=== PATIENT | female | born 1940 | race Caucasian/White ===

== ENCOUNTER 2022-06-19 09:02 | Outpatient (CLI) | payer OTHER, MEDICARE, SELFPAY ==
--- OUTSIDE RECORDS SUMMARY | 2022-06-19 09:08 | XMS_ITS | Encounter Summary ---
:1940 Author Organization [employer] Address [address] [address] Phone Care Team Providers Name Role Phone Unavailable Primary Care Provider Unavailable Encounter Details Date Type Department Care Team Description 04/16/2022 Travel Social History Tobacco Use Types Packs/Day Years Used Date Never Smoker Smokeless Tobacco: Never Used Sex Assigned at Date Recorded Not on file Job Start Date Occupation Industry Not on file Not on file Not on file COVID-19 Exposure Response Date Recorded In the last 10 days, have you been in contact with No / Unsu re 04/16/2022 12:09 PM CDT someone who was confirmed or suspected to have Coronavirus/COVID-19? documented as of this encounter Plan of Treatment Not on filedocumented as of this encounter Visit Diagnoses Not on filedocumented in this encounter Additional Health Concerns Infection Onset Date Last Indicated Resolved Time R/O COVID-19 04/16/2022 04/16/2022 04/16/2022 1:27 PM CDT COVID-19 Confirmed 04/16/2022 04/16/2022 05/07/2022 11 :06 PM CDT documented as of this encounter
--- OUTSIDE RECORDS SUMMARY | 2022-06-19 09:08 | XMS_ITS | Encounter Summary ---
:1940 Author Organization [employer] [facility] [employer] Address [address] [address] Phone Care Team Providers Name Role Phone Unavailable Primary Care Provider Unavailable Reason for Visit Reason Comments Cold Symptoms Cold symptoms x3 days. Dry t hroat, mucous, PND, runny nose. Bleeding/Bruising Bloody nose and considerable mucous secretions that started today. Encounter Details Date Type Department Care Team Description 04/16/2022 Office Visit Maryse Muir, [facility] MD tract infection, [facility] [address] [facility] unspecified type [facility] [place] (Primary Dx) [address] [address] [place], [place] [phone] (Wo rk) [address] [phone] Social History Tobacco Use Types Packs/Day Years [...] have Coronavirus/COVID-19? documented as of this encounter Last Filed Vital Signs Vital Sign Reading Time Taken Comments Blood Pressure 104/68 04/16/2022 12:21 PM CDT Pulse 72 04/16/2022 12:21 PM CDT Temperature 37.3 ??C (99.2 ??F) 04/16/2022 12:21 PM CDT Respiratory Rate - - Oxygen Saturation 96% 04/16/2022 12:21 PM CDT Inhaled Oxygen Concentration - - Weight - - Height - - Body Mass Index - - documented in this encounter Patient Instructions Patient InstructionsMaryse Green MD - 04/16/2022 12:41 PM CDT It was nice to meet you both today. I think this is viral. We did do a covid test today and will call you if this is positive. Treat with acetaminophen and or mucinex. Follow up if there is shortness of breath or fevers or other concerns of worsening. The bloody nose may come back but apply pressure as you did and if it persists and won't stop after 20 minutes or is bleeding profusely then go to the emergency room. documented in this encounter Progress Notes Maryse Green MD - 04/16/2022 12:10 PM CDT Patient in with illness for about 4 days. Dry throat and cough with mucus and sinus drainage. Now some nose bleed on the right but stopped now with pacing. No fevers. Some headache off and on. No nausea vomiting or diarrhea. No shortness of breath or pain in the chest. Did not take their temps as theyare traveling from [place]. No past medical history on file. There is no problem list on file for this patient. Current Outpatient Medications Medication Sig ??? alendronate (Fosamax) 70 MG tablet ??? anastrozole (Arimidex) 1 MG tablet Take 1 mg by mouth one time a day. ??? latanoprost (Xalatan) 0.005 % ophthalmic solution ??? prednisoLONE acetate (Pred Forte) 1 % ophthalmic suspension INSTILL 1 DROP IN BOTH EYES FOUR TIMES DAILY UNTIL DIRECTED No current facility-administered medications for this visit. No Known Allergies Vitals: 04/16/22 1221 BP: 104/68 Pulse: 72 Temp: 37.3 ??C (99.2 ??F) SpO2: 96% Physical Exam: GENERAL APPEARANCE: Healthy; alert and oriented X3; no acute distress EARS: External ears normal; ear canals normal; tympanic membranes normal MOUTH/OROPHARYNX: Normal lips, tongue, buccal mucosa and pharynx without lesions NECK: supple and no nodes LUNGS: clear to auscultation HEART: Normal with regular rhythm; normal heart sounds and no murmurs NOSE - no bleeding noted. The right nares has some dried blood on the inner septal area ASSESSMENT: (J06.9) Upper respiratory tract infection, unspecified type (primary encounter diagnosis) Comment: appears viral Plan: RAPID SARS-COV-2 RNA (COVID-19), MOLECULAR DETECTION Manage with gfvf-djp-cgmlped acetaminophen and mucinex. Follow up if worsening with shortness of breath or fevers and cough. To emergency room if nose bleeds resume and can not be stopped. documented in this encounter Miscellaneous Notes Clinical Note - Joanna Lau LPN - 04/16/2022 12:10 PM CDT All husbands cell phone number with results. is Bryan Krishnamurthy. Phone number is [phone] documented in this encounter Plan of Treatment Not on filedocumented as of this encounter Procedures Procedure Name Priority Date/Time Associated Diagnosis Comme nts RAPID SARS-COV-2 STAT 04/16/2022 12:48 PM Upper respiratory Results for this RNA (COVID-19), CDT tract infection, procedur e are in MOLECULAR DETECTION unspecified type the results section. documented in this encounter Results (ABNORMAL) RAPID SARS-COV-2 RNA (COVID-19), MOLECULAR DETECTION (04/16/2022 12:48 PM CDT) [facility] Method Time Signature SARS-CoV-2 Positive (A) Negative/Not 04/16/2022 [facility] RNA Detected 1:27 PM CDT HOSPITAL (COVID-19) LABORATORY Comment: SARS-CoV-2 (COVID-19) target nu cleic acids are detected. A positive result does not rule out bacterial infection or co-infection with other viruses. Specimen Anatomical Collection Method Collection Time Receive d Time (Source) Location / / Volume Laterality Swab NASAL / Unknown COVID-19 04/16/2022 12:48 04/16/20 22 Collection / PM CDT 12:56 PM CDT Unknown Narrative [facility] - 2021 1:27 PM CDT Test detects target RNA by real-time polymerase chain reaction (PCR) on the [employer] GeneXpert System. Results should be used in combination wi th clinical observations, patient history and epidemiological information. Results from this test should not be use d as the sole basis for treatment or other patient management decisions. The SARS-CoV-2 test is currently only fo r use under the Food and Drug Administration's Emergency Use Authorization. ??Additional information about conditions of authorization for this test can be found at: https://www.fda.gov/medical-devices/zseesjcyp-igzkcmsgam-zpcniwq-devices/emergen mx-zcn-eqnibajutqlvpk Maryse Green MD EC MICROBIOLOGY - GENERAL OR DERABLES Performing Organization Address City/State/ZIP Code Phon e Number [facility] [address] [place], [place] [address] documented in this encounter Visit Diagnoses Diagnosis Upper respiratory tract infection, unspe cified type - Primary documented in this encounter Historical Medications This list may reflect changes made after this encounter. Medication Sig Dispensed Refills Start Date End Date prednisoLONE acetate (Pred INSTILL 1 DROP IN 0 Forte) 1 % ophthalmic BOTH EYES FOUR TIMES suspension DAILY UNTIL DIRECTED latanoprost (Xalatan) 0 01/02/2022 0.005 % ophthalmic solution anastrozole (Arimidex) 1 Take 1 mg by mouth 0 MG tablet one time a day. alendronate (Fosamax) 70 0 09/10/2016 MG tablet added in this encounter Additional Health Concerns Infection Onset Date Last Indicated Resolved Time R/O COVID-19 04/16/2022 04/16/2022 04/16/2022 1:27 PM CDT documented as of this encounter
--- OUTSIDE RECORDS SUMMARY | 2022-06-19 09:08 | XMS_ITS | Encounter Summary ---
:1940 Author Organization [employer] Address [address] [address] Phone Care Team Providers Name Role Phone Unavailable Primary Care Provider Unavailable Reason for Visit Reason Onset Date Comments Covid-19 Results 04/16/2022 Encounter Details Date Type Department Care Team Description 04/16/2022 Telephone [facility] NURSE Maria Antonia Masters vid-19 Results CARE LINE Markel Roper RN [address] [place] [address] Social History Tobacco Use Types Packs/Day Years [...] have Coronavirus/COVID-19? documented as of this encounter Miscellaneous Notes Telephone Encounter - Markel Masters RN - 04/16/2022 2:21 PM CDT Call placed to patient, writer editor speaks with both the patient and her , Bryan. Per her , they are on the road, away from home; he also started having signs and symptoms on 04/13/22. COVID positive information reviewed below. Both patients may be interested in further COVID antiviral treatment but will contact their doctor's office back in [place], [place]. Patient and patient's verbalize understanding and agreement. Letter sent to address below and to email, per patient request, as she and her are on the road. [email or web address] Confirm address: yes Symptoms started: headache and uncomfortable, congestion, ears doing funny things, started on ; , Bryan, also having symptoms that started on Wednesday, 04/13. You have COVID-19. Your test result is positive. You can share these instructions with your employer or school if needed. You can take a screenshot or click on the printer button above to print. What to do next? You need to follow the guidelines below unless told otherwise by your state health department. ??? Stay home for 5 days from start of symptoms. ??? If you have a fever, continue to stay home until your fever resolves for at least 24 hours without the use of fever reducing medications such as Tylenol or ibuprofen. ??? If you have no symptoms or your symptoms are resolving after 5 days, you can leave your house. ??? Continue to wear a mask around others for 5 additional days. ??? We encourage you to wear a mask in public even after this 10 day period. What should members of your household do? If COVID positive, please follow guidelines above. If vaccination status is one of the below Follow the below ??? Have been boosted. OR ??? Completed the primary series of Pfizer or Moderna vaccine within the last 6 months. ??? OR Completed the primary series of J&J vaccine within the last 2 months. ? ? Wear a mask around others for 10 days. ??? Test on day 5, if possible, or if symptoms develop. If not boosted, not fully vaccinated OR not vaccinated Follow the below ??? Completed the primary series of Pfizer or Moderna vaccine over 6 months ago and are not boosted. OR ? ? Completed the primary series of J&J over 2 months ago and are not boosted. OR ??? Are not vaccinated. ??? Stay home for 5 days. After that continue to wear a mask around others for 5 additional days. ??? If you can't quarantine, you must wear a mask for 10 days. ??? Test on day 5, if possible, or if symptomatic. General Information Please follow these general guidelines to help prevent the spread of infections. ??? Stay at home until you have no fever for 24 hours with no fever-lowering medicine. ??? Separate yourself from other people in your home. Stay in a specific room and away from other people. ??? Cover your cough and sneezes. ??? Clean your hands often. Wash your hands with soap and water for at least 20 seconds. You may also use hand retail assistant manager with at least 60% alcohol. ??? Try not to share personal household items. ??? Clean and disinfect objects and surfaces every day that are touched often ??? Do not go back to work until your symptoms are completely gone if you work with people who have a weak immune system. Your employer may also want to make sure it's okay for you go back to work. You may be eligible for a COVID-19 treatment Because your test is positive for COVID-19, you may be eligible for a COVID-19 treatment such as an oral antiviral or IV monoclonal antibody treatment. Oral antivirals and IV monoclonal antibodies are investigational drugs authorized for emergency use by the Food and Drug Administration (FDA) during the COVID-19 pandemic. Antiviral medications stop viruses from multiplying in the body and may help you avoid more serious symptoms from happening. The antiviral treatment is given as three pills twice a day for five days. Monoclonal antibodies are lab-made proteins. They help your body protect itself against viruses. Monoclonal antibodies are given through an IV in your arm. Patients who qualify for this treatment: ??? Have the COVID-19 virus. ??? Are at least 12 years of age or older. ??? Weigh at least 88 pounds or 40 kilograms. ??? Are within 5 days from the start of mild to moderate symptoms (antiviral medications) or within 7 days from the start of mild to moderate symptoms (monoclonal antibodies). ??? Meet at least 1 risk factor from the FDA. ??? Meet current [facility] Department eligibility criteria. If you are eligible for a COVID-19 treatment an [facility] nurse may call you to talk more about this optional treatment. You may also talk to your medical provider. To learn more about these therapies visit: https://www.[facility].org/covid-19/xlvws-60-pgrgaielo/ Contact your doctor's office if: ??? Your symptoms get worse. ??? You have new symptoms. ??? You have any questions. You can schedule a visit with your Primary Care Clinic or start a 17/05 Video Visit on Demand by clicking here ([email or web address]). Go to the Emergency Room if you: ??? Have a hard time breathing. ??? Are very dehydrated. ??? Cannot keep fluids down (severe vomiting or diarrhea). ??? Are confused. ??? Feel weak. Resources You can find more information on the CDC's website at www.cdc.gov. You can also call your local [facility] or [facility] for services. Please follow your local health department's guidelines for COVID-19. [facility] https://www.health.[facility].oh./diseases/coronavirus/index.html Hotline at 314-698-8595 or [facility] https://www.health.[place].gov/diseases-conditions/coronavirus Hotline at [facility] https://www.[facility].[place].gov/covid-19/index.htm Call: 2-1-1 documented in this encounter Plan of Treatment Not on filedocumented as of this encounter Visit Diagnoses Not on filedocumented in this encounter Additional Health Concerns Infection Onset Date Last Indicated Resolved Time R/O COVID-19 04/16/2022 04/16/2022 04/16/2022 1:27 PM CDT COVID-19 Confirmed 04/16/2022 04/16/2022 05/07/2022 11 :06 PM CDT documented as of this encounter
--- OUTSIDE RECORDS SUMMARY | 2022-06-19 09:08 | XMS_ITS | Encounter Summary ---
:1940 Author Organization [employer] Address [address] [address] Phone Care Team Providers Name Role Phone Unavailable Primary Care Provider Unavailable Reason for Visit Reason Onset Date Comments Covid-19 Infusion Therapy 04/17/2022 Encounter Details Date Type Department Care Team Description 04/17/2022 Patient Outreach [facility] Jocelyn Hensonid-1 9 Infusion GENERAL RESEARCH AND Delma Izaguirre RN Therapy STUDY [address] [place] [address] Social History Tobacco Use Types Packs/Day Years [...] have Coronavirus/COVID-19? documented as of this encounter Progress Notes Delma Henson RN - 04/17/2022 12:54 PM CDT Patient has already received a COVID therapeutic and is not eligible for additional therapeutics at this time. documented in this encounter Plan of Treatment Not on filedocumented as of this encounter Visit Diagnoses Not on filedocumented in this encounter Additional Health Concerns Infection Onset Date Last Indicated Resolved Time COVID-19 Confirmed 04/16/2022 04/16/2022 05/07/2022 11 :06 PM CDT documented as of this encounter
--- OUTSIDE RECORDS SUMMARY | 2022-06-19 09:08 | XMS_ITS | Clinical Summary ---
:1940 Author Organization [employer] Address [address] [address] Phone Care Team Providers Name Role Phone Unavailable Primary Care Provider Unavailable Allergies No known active allergies Medications Medication Sig Dispensed Refills Start Date End Date Status alendronate (Fosamax) 0 09/10/2016 Active 70 MG tablet anastrozole (Arimidex) Take 1 mg by mouth 0 01/12/20 Active 1 MG tablet one time a day. latanoprost (Xalatan) 0 01/02/2022 Active 0.005 % ophthalmic solution prednisoLONE acetate INSTILL 1 DROP IN 0 02/10/2022 Active (Pred Forte) 1 % BOTH EYES FOUR ophthalmic suspension TIMES DAILY UNTIL DIRECTED Active Problems No known active problems Encounters Date Type Specialty Care Team Description 04/17/2022 Patient Outreach [employer] Daniel Henson Infusion P, RN Therapy 04/16/2022 Office Visit Urgent Care Maryse Green respi [facility] MD tract infection , unspecified typ e (Primary Dx) 04/16/2022 Telephone Administrative Brock Masters Results Markel Roper RN 04/16/2022 Travel from Last 3 Months Social History Tobacco Use Types Packs/Day Years Used Date Never Smoker Smokeless Tobacco: Never Used Sex Assigned at Date Recorded Not on file Job Start Date Occupation Industry Not on file Not on file Not on file Obstetrics History Last Filed Vital Signs Vital Sign Reading Time Taken Comments Blood Pressure 104/68 04/16/2022 12:21 PM CDT Pulse 72 04/16/2022 12:21 PM CDT Temperature 37.3 ??C (99.2 ??F) 04/16/2022 12:21 PM CDT Respiratory Rate - - Oxygen Saturation 96% 04/16/2022 12:21 PM CDT Inhaled Oxygen Concentration - - Weight - - Height - - Body Mass Index - - Plan of Treatment Health Maintenance Due Date Last Done Comments MEDICARE AWV 1940 COVID-19 Vaccine (#1) 1940 PERTUSSIS (Standing Order) 1959 TETANUS (Standing Order) 1959 Shingrix (Zoster recombinant) vaccine (Standing Order) 0 (1 of 2) DXA,FEMALES AGE 65 OR GREATER 2005 Pneumococcal Vaccine: 65+ yrs (Standing Order) (1 - 2005 PCV) Influenza Vaccine Seasonal (Standing Order) (#1) 2022 Procedures Procedure Name Priority Date/Time Associated Diagnosis Comme nts RAPID SARS-COV-2 STAT 04/16/2022 12:48 PM Upper respiratory Results for this RNA (COVID-19), CDT tract infection, procedur e are in MOLECULAR DETECTION unspecified type the results section. from Last 3 Months Results (ABNORMAL) RAPID SARS-COV-2 RNA (COVID-19), MOLECULAR DETECTION (04/16/2022 12:48 PM CDT) [facility] Method Time Signature SARS-CoV-2 Positive (A) Negative/Not 04/16/2022 [facility] RNA Detected 1:27 PM CDT [facility] (COVID-19) LABORATORY Comment: SARS-CoV-2 (COVID-19) target nu cleic acids are detected. A positive result does not rule out bacterial infection or co-infection with other viruses. Specimen Anatomical Collection Method Collection Time Receive d Time (Source) Location / / Volume Laterality Swab NASAL / Unknown COVID-19 04/16/2022 12:48 04/16/20 22 Collection / PM CDT 12:56 PM CDT Unknown Narrative [facility] - 2021 1:27 PM CDT Test detects target RNA by real-time polymerase chain reaction (PCR) on the [employer] GeneXpert System. Results should be used in [...] for this test can be found at: https://www.fda.gov/medical-devices/cxvsbwdwv-ztukskbmfm-ygfrals-devices/emergen uo-wde-usvtflrvlpsras Maryse Green MD EC MICROBIOLOGY - GENERAL OR DERABLES Performing Organization Address City/State/ZIP Code Phon e Number [facility] [address] [place], [place] [address] from Last 3 Months Insurance Payer Benefit Plan / Subscriber ID Effective Phone Address T ype Group Dates AETNA AETNA MEDICARE [id number] 2022-Prese [phone] [address] Medicare ADVANTAGE [id number] [place] [address]
--- NOTE | 2022-06-19 09:15 | CRLHL7_ITS ---
For Patients: As a result of the Century Cures Act, medical imaging exams and procedure reports are released immediately into your electronic medical record. You may view this report before your referring provider. If you have questions, please contact your health care provider. BILATERAL SCREENING MAMMOGRAM WITH COMPUTER-AIDED DETECTION TECHNIQUE: CC and MLO views were obtained. These mammographic images have been obtained using full-field digital technique. These mammographic images were interpreted with the benefit of computer-aided detection. COMPARISON FILM: 06/18/21, 06/18/20, 05/29/19. FINDINGS: The breasts are heterogeneously dense, which may obscure small masses IMPRESSION: There is no radiographic evidence for malignancy. ASSESSMENT: BI-RADS Category 1: Negative RECOMMENDATION: Routine screening mammogram in 1 year. A lay language report of this examination will be provided to the patient. Jewel Mcnair M.D. Diagnostic Radiologist [email or web address] SEEMA/Dictated by: Jewel Mcnair MD @ 06/19/2022 11:47:00 AM (Electronically Signed)
== END 2022-06-19 09:03 | disposition home or self-care (01) ==
LOC: MAMMO 09:06
PROVIDERS: PCP Family Medicine; Visit Provider Family Medicine
DX: Z12.31 Encounter for screening mammogram for malignant neoplasm of breast (principal); R92.2 Inconclusive mammogram
CPT/HCPCS: 77063; 77067

== ENCOUNTER 2022-08-13 11:51 | Outpatient (CLI) | payer OTHER, MEDICARE, SELFPAY ==
--- OUTSIDE RECORDS SUMMARY | 2022-08-13 11:53 | XMS_ITS | Encounter Summary ---
:1940 Author Organization [employer] Address [address] [address] Phone Care Team Providers Name Role Phone Unavailable Primary Care Provider Unavailable Reason for Visit Reason Onset Date Comments Covid-19 Infusion Therapy 04/17/2022 Encounter Details Date Type Department Care Team Description 04/17/2022 Patient Outreach [facility] Jocelyn Hensonid-1 9 Infusion GENERAL RESEARCH AND Delma Izaguirre RN Therapy STUDY [address] [place] [address] Social History Tobacco Use Types Packs/Day Years [...]
--- OUTSIDE RECORDS SUMMARY | 2022-08-13 11:53 | XMS_ITS | Encounter Summary ---
:1940 Author Organization [employer] Address [address] [address] Phone Care Team Providers Name Role Phone [...]
--- OUTSIDE RECORDS SUMMARY | 2022-08-13 11:53 | XMS_ITS | Encounter Summary ---
:1940 Author Organization [employer] [facility] [employer] Address [address] [address] Phone Care Team Providers Name Role Phone Unavailable Primary Care Provider Unavailable Reason for Visit Reason Comments Cold Symptoms Cold symptoms x3 days. Dry t hroat, mucous, PND, runny nose. Bleeding/Bruising Bloody nose and considerable mucous secretions that started today. Encounter Details Date Type Department Care Team Description 04/16/2022 Office Visit Maryse Muir, [facility] MD tract infection, [facility] 400 [facility] unspecified type [facility] [place] (Primary Dx) [address] [address] [place], [place] [phone] (Wo rk) [phone] [phone] Social History Tobacco Use Types Packs/Day Years [...] take their temps as theyare traveling from [place]. No past medical history on file. There [...] SARS-COV-2 RNA (COVID-19), MOLECULAR DETECTION Manage with ccki-vrf-qaaopjp acetaminophen and mucinex. Follow up if worsening with shortness of breath or fevers and cough. To emergency room if nose bleeds resume and can not be stopped. documented in this encounter Miscellaneous Notes Clinical Note - Joanna Lau LPN - 04/16/2022 12:10 PM CDT All husbands cell phone number with results. is Bryan Krishnamurthy. Phone number is [phone] documented in this encounter Plan of Treatment [...] (COVID-19), MOLECULAR DETECTION (04/16/2022 12:48 PM CDT) [facility] Method Time Signature SARS-CoV-2 Positive (A) Negative/Not 04/16/2022 [facility] RNA Detected 1:27 PM CDT HOSPITAL (COVID-19) [...] PM CDT 12:56 PM CDT Unknown Narrative [facility] - 2021 1:27 PM CDT Test detects target RNA by real-time polymerase chain reaction (PCR) on the [employer] GeneXpert System. Results should be used in [...] for this test can be found at: https://www.fda.gov/medical-devices/rgvzofccb-nmjsqnedkh-vhoexif-devices/emergen xa-ask-owikmkanxjwbql Maryse Green MD EC MICROBIOLOGY - GENERAL OR DERABLES Performing Organization Address City/State/ZIP Code Phon e Number [facility] [address] [place], [place] [address] documented in this encounter [...]
--- OUTSIDE RECORDS SUMMARY | 2022-08-13 11:53 | XMS_ITS | Clinical Summary ---
:1940 Author Organization [facility] Address [address] [address] Phone Care Team Providers Name Role Phone [...] DIRECTED Active Problems No known active problems Social History Tobacco Use Types Packs/Day Years [...] 1959 Shingrix (Zoster recombinant) vaccine (Standing Order) 07/15/199 0 (1 of 2) DXA,FEMALES AGE 65 OR GREATER 2005 Pneumococcal Vaccine: 65+ yrs (Standing Order) (1 - 2005 PCV) Influenza Vaccine Seasonal (Standing Order) (#1) 2022 Insurance Payer Benefit Plan / Subscriber ID Effective Phone Address T ype Group Dates AETNA AETNA MEDICARE [id number] 2022-Pres [phone] [address] [place] [id number] [place] [address]
--- OUTSIDE RECORDS SUMMARY | 2022-08-13 11:53 | XMS_ITS | Encounter Summary ---
:1940 Author Organization [facility] Address [address] [address] Phone Care Team Providers Name Role Phone Unavailable Primary Care Provider Unavailable Reason for Visit Reason Onset Date Comments Covid-19 Results 04/16/2022 Encounter Details Date Type Department Care Team Description 04/16/2022 Telephone [facility] Maria Antonia Masters vid-19 Results [facility] Markel Roper RN [address] [place] [address] Social History Tobacco Use Types [...] 2:21 PM CDT Call placed to patient, data analyst report writer speaks with both the patient and her , Bryan. Per her , they are on the road, away from home; he also started having signs and symptoms on 04/13/22. COVID positive information reviewed below. Both patients may be interested in further COVID antiviral treatment but will contact their doctor's office back in [place], [place]. Patient and patient's verbalize understanding and agreement. Letter sent to address below and to email, per patient request, as she and her are on the road. [email or web address] Confirm address: yes Symptoms started: headache and [...] 20 seconds. You may also use hand aquaculture worker with at least 60% alcohol. ??? Try [...] factor from the FDA. ??? Meet current [facility] Department eligibility criteria. If you are eligible for a COVID-19 treatment an [facility] nurse may call you to talk more about this optional treatment. You may also talk to your medical provider. To learn more about these therapies visit: https://[email or web address].org/covid-19/hzysp-[email or web address]-srqwiuhsc/ Contact your doctor's office if: ??? Your [...] www.cdc.gov. You can also call your local [facility] or community health for services. Please follow your local health department's guidelines for COVID-19. [facility] https://www.health.[facility].wv./diseases/coronavirus/index.html Hotline at 933-678-1836 or [facility] https://www.health.[place].gov/diseases-conditions/coronavirus Hotline at [facility] https://www.[facility].gov/covid-19/index.htm Call: 2-1-1 documented in this encounter Plan of Treatment Not on filedocumented as of this encounter Visit Diagnoses Not on filedocumented in this encounter Additional Health Concerns Infection Onset Date Last Indicated Resolved Time R/O COVID-19 04/16/2022 04/16/2022 04/16/2022 1:27 PM CDT COVID-19 Confirmed 04/16/2022 04/16/2022 05/07/2022 11 :06 PM CDT documented as of this encounter
--- OUTSIDE RECORDS SUMMARY | 2022-08-13 11:53 | XMS_ITS | Clinical Summary ---
:1940 Author Organization [facility] [place] [address] Care Team Providers Name Role Phone Pcp, No Primary Care Provider Unavailable Allergies Active Allergy Reactions Severity Noted Date Comments Penicillins Rash 08/30/2013 Medications No known medications Active Problems Not on file Social History Tobacco Use Types Packs/Day Years Used Date Never Smoker Alcohol Use Standard Drinks/Week Comments Not Asked 0 (1 standard drink = 0.6 oz pure alcoho l) Sex Assigned at Date Recorded Not on file Obstetrics History Last Filed Vital Signs Vital Sign Reading Time Taken Comments Blood Pressure 105/63 03/31/2017 9:21 AM CDT Pulse 67 03/31/2017 9:21 AM CDT Temperature - - Respiratory Rate - - Oxygen Saturation 96% 03/31/2017 9:21 AM CDT Inhaled Oxygen Concentration - - Weight 66.9 kg (147 lb 6.4 oz) 03/31/2017 9:21 AM CDT Height - - Body Mass Index - - Plan of Treatment Health Maintenance Due Date Last Done Comments COVID-19 vaccine series (#1) 1940 Tdap 1951 Depression screening for age 12+ 1952 BMI (ht and wt on same day) for age 18+ 1958 Tetanus booster 1960 Zoster (shingles) series for age 50+ (1 of 2) 1990 DEXA/DXA scan for age 65+ 2005 Pneumococcal series for age 65+ (1 - PCV) 2005 Influenza for age 65+ 06/25/2022 Results Not on filefrom Last 3 Months Insurance Payer Benefit Plan / Subscriber ID Effective Dates Phone Addre ss Type Group MEDICARE PFFS MR HERBERTTSANDEEP MR [id number] 2009-Present [address] [place] [phone] Care Teams Recruiter Relationship Specialty Start Date End Date Pcp, No PCP - General 01/08/12 .
--- NOTE | 2022-08-13 13:00 | CRLHL7_ITS ---
For Patients: As a result of the Century Cures Act, medical imaging exams and procedure reports are released immediately into your electronic medical record. You may view this report before your referring provider. If you have questions, please contact your health care provider. DXA BONE MINERAL DENSITY STUDY Current height (in): 67.0. Weight (lb): 132.0. Menopause age: 45. Ethnicity: White. 1. Have you had a previous hip or vertebral fracture? No. 2. Have you had any fractures during your adult life which did not result from significant trauma (e.g., auto accident)? No. 3. Did either of your parents have a hip fracture? No. 4. Do you smoke? No. 5. Have you ever taken Glucocorticoids? No. 6. Do you have rheumatoid arthritis? No. 7. Do you have secondary osteoporosis? No. 8. Do you drink 3 or more alcoholic drinks per day? No. 9. Are you being treated for osteoporosis? No. 10. Have you ever taken any of the following medications: Actonel, Evista, Fosamax, Miacalcin, Reclast, Boniva, Forteo, HRT (i.e. estrogen/hormone therapy), Protelos, Prolia, Vitamin D, Calcium, other ??? please specify. ANSWER: Yes, Fosamax, vitamin D, calcium. 11. Do you have any of the following medical conditions: Anorexia or bulimia, asthma or emphysema, end stage renal disease, hyperparathyroidism, any seizure disorders, cancer, inflammatory bowel diseases, hysterectomy, other ??? please specify. ANSWER: Yes, cancer. 12. What was your maximum height (inches)? 67. 13. Do you perform weight bearing exercise regularly? Yes. 14. Do you regularly consume dairy products? Yes. 15. Do you drink caffeinated beverages? Yes. 16. At what age did your period start? 13. 17. Are you premenopausal? No. 18. How many full term pregnancies have you had? 2. 19. Have you ever missed your period for more than 6 months in a row (not including or menopause)? Not provided. TECHNIQUE: Bone mineral density study was performed using the [employer]. FINDINGS: The results of the study expressed as bone mineral density (BMD) are as follows: Lumbar spine L1 to L2: BMD: 1.022 g/cm2. T-score: 0.4. Z-score: 3.0. Neck Left: BMD: 0.715 g/cm2. T-score: -1.2. Z-score: 1.2. Right: BMD: 0.737 g/cm2. T-score: -1.0. Z-score: 1.4. Total Left: BMD: 0.735 g/cm2. T-score: -1.7. Z-score: 0.5. Right: BMD: 0.749 g/cm2. T-score: -1.6. Z-score: 0.6. IMPRESSION: Osteopenia. *Comparison exams done prior to 03/2020 were performed on different unit, kenxus. COMPARISON: Compared with scan of 06/27/2020, the bone mineral density has decreased by 3.5 percent at the spine and decreased by 2.3 percent at the hips. Compared with scan of , the bone mineral density has decreased by 0.8 percent at the spine and increased by 1.7 percent at the hips. FRAX 10-year Fracture Risk Major Osteoporotic Fracture: 11 percent Hip Fracture: 2.6 percent Reported Risk Factors: [place] () Neck BMD=0.715, BMI=20.7 Jewel Mcnair M.D. Diagnostic Radiologist [email or web address] JAYY/adonis / be/Dictated by: Jewel Mcnair MD @ 08/13/2022 3:59:00 PM (Electronically Signed)
== END 2022-08-13 11:52 | disposition home or self-care (01) ==
LOC: RAD 11:51
PROVIDERS: PCP Family Medicine; Visit Provider Internal Medicine Hematology & Oncology
DX: C50.811 Malignant neoplasm of overlapping sites of right female breast (principal); M85.89 Other specified disorders of bone density and structure, multiple sites; M81.0 Age-related osteoporosis without current pathological fracture
CPT/HCPCS: 77080

== ENCOUNTER 2022-08-26 13:51 | Outpatient (RCR) | payer MEDICARE, SELFPAY | END 2023-02-22 23:59 | disposition home or self-care (01) | LOC: CCIC 13:51 | PROVIDERS: PCP Family Medicine; Visit Provider Internal Medicine Hematology & Oncology | DX: C50.911 Malignant neoplasm of unspecified site of right female breast (principal); Z17.0 Estrogen receptor positive status [ER+]; Z79.811 Long term (current) use of aromatase inhibitors; M81.0 Age-related osteoporosis without current pathological fracture; R41.3 Other amnesia | CPT/HCPCS: 99212; 99214 ==

== ENCOUNTER 2022-12-07 10:29 | Outpatient (CLI) | payer MEDICARE, SELFPAY | END 2022-12-07 10:30 | disposition home or self-care (01) | LOC: NFLDREF 10:30 | PROVIDERS: PCP Family Medicine; Visit Provider Obstetrics & Gynecology | DX: R32 Unspecified urinary incontinence (principal) | CPT/HCPCS: 87086 ==

== ENCOUNTER 2022-12-25 08:30 | Outpatient (RCR) | payer MEDICARE, SELFPAY ==
--- NOTE | 2022-11-13 18:20 | OT.OPOE ---
OT Outpatient Ortho Eval OT Outpatient Ortho Eval Start: 11/13/22 07:28 Freq: Status: Active Protocol: Document 11/13/22 17:56 AMB (Rec: 11/13/22 18:15 AMB [email or web address]) E-signed By Cassy Reyes, OTR/L, CLT, CERTIFIED PHARMACY TECH OT OP Ortho Eval Details Type Type Eval Complexity Low Insurance Information Insurance Information Medicare B Outpatient History/Precautions Current Condition/Medical Diagnosis Referring Provider Dr Olsen Treatment Diagnosis RUE 4th and 5th Metacarpal fractures Date of Onset 11/11/22 Other Precautions In need of orthoplast splint for protective healing, off for bathing and AROM of fingers Medical Conditions CA Other Conditions PMH includes breast cancer in 2018 with mastectomy and LN removal on the right, pt at risk for lymphedema Medical/Functional History Medical History Reviewed Yes Prior Level of Function/Mobility Full, pain-free use of the RUE Social History Employment Status Retired Oriented Mental Status No Concerns Mental Status Comments Seems to have mild expressive aphasia or communication disorder, does will with extra time. 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 Pt has moderate, 5/10 pain. Pt states she usually stays pretty active around the house and delivering MOW, now resting as she is afraid of falling. Goniometric Comments Goniometric Comments Goniometric Comments 11/13/22 Pt demonstrates 30 deg of wrist flexion and extension, 30 deg of MP flexion, 40 deg of PIP flexion and 10-25 deg of DIP flexion of the RUE 4-5 digits. Edema Assessment Additional Information Comments 11/13/22 Significant pitting edema is appreciated throughout the dorsal hand and fingers on the RUE. OT Objective Data Hand Hand Dominance Right Skin/Wounds Skin Integrity Comments Pt has moderate bruising throughout all of her fingers and hand on the RUE. Moderate swelling is also appreciated throughout the hand and fingers, especially at the MP heads. OT Problems Problems Problems Decreased Strength,Decreased Range of Motion,Decreased Dexterity,Decreased Fine Motor ,Decreased Coordination, Lifting,Gripping Other Problems Writing,Opening Containers, Dressing Patient Potential Good Assessment Assessment Assessment Pt presents to OT with pain, swelling, weakness and significant limitations in AROM of her RUE due to fx of the 4th and 5th metacarpal bones. 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 Pt will benefit from skilled OT intervention to address limitations and restore full, pain-free use of her RUE. Occupational Therapy Treatment Plan - OP Potential Rehabilitation Potential Good Set Goals Goals Set with Patient Yes Goals Goals 1. Pt will be independent and compliant with splint for protected healing and HEP in order to assure healing and resume full, pain-free use of the involved UE. 3 weeks 2. Pt will demonstrate full, pain-free AROM of the involved UE in order to improve ability to grasp and hold. 8 weeks 3. Pt will demonstrate pain- free education diagnostician and pinch strength comparable to the uninvolved side in order to improve functional grasp, hold, reach, and lifting ability needed to complete self-care, leisure tasks, and work activities. 10 weeks. Target Date 01/23/23 Progress set Treatment Plan Treatment Plan Evaluation,Edema Control, Manual Therapy,Splinting, Therapeutic Exercise, Therapeutic Activities,Self- Care/Home Management,Education Expected Frequency 1-2x Week Expected Duration 8-10 Weeks Comment Summary Pt was provided with custom ulnar gutter splint for protected healing of the RUE 4th and 5th metacarpals. She was also provided with finger sleeves and compression sleeve for edema reduction and a HEP for VERY GENTLE AROM / tendon glides to reduce risk for contractures. Certification Certification I Certify That: Therapy Services Provided, Therapy Plan Established, Therapy Plan Reviewed Recertification Information Recertification Information Initial Certification Date 11/13/22 Recertification Due Date 02/11/23 Reasons to Continue Skilled Therapy Initiated OT today to address RUE metacarpal fx of th 4-5th digits, see above. Rehabilitation Potential Good Continued Plan of Care and Interventions See above Provider Signature Shows Agreement With POC & Medical Necessity Physician Comment/Change Comment or Changes Physician NPI Number #
--- NOTE | 2022-11-24 14:01 | ONC.NURNOTE ---
Called pt to review changes in [facility] program and Dr. Fajardo's transition to [facility], returning Spring 2022. LMOM; due April 2023.
== END 2022-12-25 11:06 | disposition home or self-care (01) ==
PROVIDERS: PCP Family Medicine; Visit Provider Orthopaedic Surgery Sports Medicine
DX: S62.304D Unspecified fracture of fourth metacarpal bone, right hand, subsequent encounter for fracture with routine healing (principal); Z51.89 Encounter for other specified aftercare
CPT/HCPCS: 97110; 97140; 97165; L3806; X5282

== ENCOUNTER 2023-06-23 07:27 | Outpatient (CLI) | payer MEDICARE, SELFPAY ==
--- NOTE | 2023-06-23 07:45 | CRLHL7_ITS ---
For Patients: As a result of the Century Cures Act, medical imaging exams and procedure reports are released immediately into your electronic medical record. You may view this report before your referring provider. If you have questions, please contact your health care provider. BILATERAL DIGITAL SCREENING MAMMOGRAM WITH TOMOSYNTHESIS AND COMPUTER-AIDED DETECTION CLINICAL HISTORY: Routine screening exam. COMPARISON: 06/19/2022, 06/18/2021, 06/18/2020, 05/29/2019. TECHNIQUE: Digital mammogram in CC and MLO projections including computer-aided detection (CAD). Tomosynthesis utilized. BREAST COMPOSITION: There are areas of scattered fibroglandular density. FINDINGS: RIGHT Breast: Nodular density is present in the upper breast 2 cm from the nipple in MLO view only. LEFT Breast: No suspicious findings. IMPRESSION: RIGHT breast asymmetry/mass. RECOMMENDATIONS: Additional mammographic views of the RIGHT breast including 3D spot compression MLO and 3D true lateral. RIGHT breast ultrasound may also be required. BI-RADS Category 0: Incomplete: Need Additional Imaging Evaluation and/or Prior Mammograms for Comparison The [facility] will contact the patient for follow-up. A lay language report of this examination will be provided to the patient. Dictated by Jewel Mcnair MD @ 06/23/2023 11:13:12 AM jj/Dictated by: Jewel Mcnair MD @ 06/23/2023 11:13:00 AM (Electronically Signed)
== END 2023-06-23 07:28 | disposition home or self-care (01) ==
LOC: MAMMO 07:28
PROVIDERS: PCP Family Medicine; Visit Provider Internal Medicine Hematology & Oncology
DX: Z12.31 Encounter for screening mammogram for malignant neoplasm of breast (principal); N63.10 Unspecified lump in the right breast, unspecified quadrant
CPT/HCPCS: 77063; 77067

== ENCOUNTER 2023-07-01 10:24 | Outpatient (CLI) | payer MEDICARE, SELFPAY ==
--- NOTE | 2023-07-01 10:45 | CRLHL7_ITS ---
For Patients: As a result of the Cures Act, medical imaging exams and procedure reports are released immediately into your electronic medical record. You may view this report before your referring provider. If you have questions, please contact your health care provider. DIGITAL DIAGNOSTIC RIGHT MAMMMOGRAM USING TOMOSYNTHESIS AND COMPUTER-AIDED DETECTION RIGHT BREAST ULTRASOUND CLINICAL HISTORY: RIGHT breast mass/asymmetry. COMPARISON: 06/23/2023. TECHNIQUE: Digital RIGHT mammogram in two projections. Tomosynthesis and CAD utilized. Real-time ultrasound imaging of RIGHT breast with imaging documentation. Scanning was performed by both the technologist and the radiologist. BREAST COMPOSITION: There are areas of scattered fibroglandular density. FINDINGS: 3D spot compression MLO and 3D true lateral RIGHT breast mammogram images submitted. Faint nodular density is present within the upper RIGHT breast without architectural distortion. No suspicious calcifications. Benign coarse calcification again noted. Targeted RIGHT breast ultrasound performed at 12 o`clock 2 cm from the nipple. In this location there is a focal nodular area with decreased echogenicity measuring 2.2 x 0.5 x 1.9 cm. IMPRESSION: Indeterminate focus of hypoechoic breast tissue 12 o`clock 2 cm from the nipple, possibly representing scar tissue. RECOMMENDATIONS: Ultrasound-guided core needle biopsy. Results and recommendations discussed with the patient. BI-RADS Category 4: Suspicious A lay language report of this examination will be provided to the patient. Dictated by Jewel Mcnair MD @ 07/01/2023 12:16:25 PM carsonj/Dictated by: Jewel Mcnair MD @ 07/01/2023 12:16:00 PM (Electronically Signed)
--- NOTE | 2023-07-01 11:15 | CRLHL7_ITS ---
For Patients: As a result of the Cures Act, medical imaging exams and procedure reports are released immediately into your electronic medical record. You may view this report before your referring provider. If you have questions, please contact your health care provider. PLEASE SEE DIGITAL DIAGNOSTIC RIGHT MAMMOGRAM PERFORMED SAME DAY CRL: rafa craig/Dictated by: Jewel Mcnair MD @ 07/01/2023 12:10:00 PM (Electronically Signed)
== END 2023-07-01 10:25 | disposition home or self-care (01) ==
LOC: MAMMO 10:24
PROVIDERS: PCP Family Medicine; Visit Provider Internal Medicine Hematology & Oncology
DX: N63.10 Unspecified lump in the right breast, unspecified quadrant (principal); R92.8 Other abnormal and inconclusive findings on diagnostic imaging of breast
CPT/HCPCS: 76642; 77065; G0279

== ENCOUNTER 2023-07-02 09:54 | Outpatient (CLI) | payer MEDICARE, SELFPAY ==
--- NOTE | 2023-07-02 10:15 | CRLHL7_ITS ---
For Patients: As a result of the Century Cures Act, medical imaging exams and procedure reports are released immediately into your electronic medical record. You may view this report before your referring provider. If you have questions, please contact your health care provider. ULTRASOUND-GUIDED BREAST BIOPSY AND POST-BIOPSY DIGITAL MAMMOGRAM FOR BIOPSY MARKER PLACEMENT CLINICAL HISTORY: Indeterminate hypoechoic nodular like tissue. COMPARISON STUDIES: 07/01/2023. TECHNIQUE: Real-time ultrasound with image documentation was used for targeting the breast lesion. Core biopsy specimens were obtained using an automated gun with an 18-gauge biopsy needle. Post-biopsy CC and ML digital mammograms were obtained to document position of the biopsy marker. CONSENT and TIME OUT: The procedure, risks, and alternatives were explained to the patient and a consent was signed. [place] Protocol was followed including pre-procedure verification that relevant information/documentation was available, reviewed and properly matched to the patient; consent accurate and complete; and equipment and supplies available. Time Out was conducted just prior to starting procedure to verify the four required elements: patient identity, correct side/site marked (if applicable), procedure, relevant images/results properly labeled and displayed (if applicable). PROCEDURE: The patient was positioned supine on the ultrasound table. The breast was prepped with ChloraPrep. 8 cc of 1 percent lidocaine used for local anesthesia. Core samples were obtained. A sterile metal biopsy clip was placed percutaneously to kevin the lesion position within the breast. The specimens were placed in 10% formalin and sent to the pathology department. Pressure was held on the biopsy site until all bleeding subsided. The skin incision was closed with Steri-Strips. An ice pack was positioned over the biopsy site. Post-biopsy instructions were reviewed with the patient, and a written copy was given to her. ADDENDUM: Pathology consistent with dense stromal fibrosis. No atypia or malignancy. This is concordant. Routine screening mammography recommended. Dictated by: Jewel Mcnair MD @10/08/2023 8:32:08 AM / TORREY:rafa LATERALITY: RIGHT breast. LESION: Hypoechoic nodular like tissue measuring 2.2 x 0.5 x 1.9 cm at 12 o`clock 2 cm from the nipple. SUSPICION FOR MALIGNANCY: Low, probable fat necrosis. NUMBER OF SAMPLES: 5. BIOPSY CLIP SHAPE: Overall. PROXIMITY OF CLIP TO TARGET: Within the lesion. IMPRESSION: Ultrasound-guided breast biopsy. When the pathology report is available, an addendum to this report will be made. ACR not applicable Dictated by Jewel Mcnair MD @ 07/02/2023 2:20:06 PM jj/Dictated by: Jewel Mcnair MD @ 07/02/2023 2:20:00 PM (Electronically Signed)
--- NOTE | 2023-07-02 11:00 | CRLHL7_ITS ---
For Patients: As a result of the Century Cures Act, medical imaging exams and procedure reports are released immediately into your electronic medical record. You may view this report before your referring provider. If you have questions, please contact your health care provider. PLEASE SEE ULTRASOUND-GUIDED RIGHT BREAST BIOPSY PERFORMED SAME DAY CRL:rafa craig/Dictated by: Jewel Mcnair MD @ 07/02/2023 2:18:00 PM (Electronically Signed)
== END 2023-07-02 09:55 | disposition home or self-care (01) ==
PROVIDERS: PCP Family Medicine; Visit Provider Internal Medicine Hematology & Oncology
DX: N63.10 Unspecified lump in the right breast, unspecified quadrant (principal); N60.31 Fibrosclerosis of right breast; R92.8 Other abnormal and inconclusive findings on diagnostic imaging of breast
CPT/HCPCS: 19083; 77065; 88305; A4648; A4649

== ENCOUNTER 2023-07-07 13:15 | Outpatient (RCR) | payer MEDICARE, SELFPAY | END 2024-01-03 23:59 | disposition home or self-care (01) | LOC: CCIC 13:15 | PROVIDERS: PCP Family Medicine; Visit Provider Internal Medicine Hematology & Oncology | DX: C50.911 Malignant neoplasm of unspecified site of right female breast (principal); Z17.0 Estrogen receptor positive status [ER+]; Z79.811 Long term (current) use of aromatase inhibitors; M81.0 Age-related osteoporosis without current pathological fracture | CPT/HCPCS: 99212; 99213; 99214 ==

== ENCOUNTER 2024-07-10 13:17 | Outpatient (RCR) | payer MEDICARE, SELFPAY | END 2025-01-06 23:59 | disposition home or self-care (01) | LOC: CCIC 13:17 | PROVIDERS: PCP Family Medicine; Visit Provider Physician Assistant | DX: C50.911 Malignant neoplasm of unspecified site of right female breast (principal); Z17.0 Estrogen receptor positive status [ER+]; M81.0 Age-related osteoporosis without current pathological fracture | CPT/HCPCS: 99213; G0463 ==

== ENCOUNTER 2024-07-21 10:41 | Outpatient (CLI) | payer MEDICARE, SELFPAY ==
--- OUTSIDE RECORDS SUMMARY | 2024-07-21 10:44 | XMS_ITS | Clinical Summary ---
Author Organization [facility] Address [address] [address] Phone Care Team Providers Care Advertisement Distributor Name Role Phone Unavailable Primary Care Provider Unavailabl e Allergies No known active allergies Medications Medication Sig Dispensed Refills Start Date End Date Status alendronate (Fosamax) 70 MG tablet 09/10/2016 Active anastrozole (Arimidex) 1 MG tablet Take 1 mg by mouth one time a day. 01/11/2022 Active latanoprost (Xalatan) 0.005 % ophthalmic solution 01/02/2022 Active prednisoLONE acetate (Pred Forte) 1 % ophthalmic suspension INSTILL 1 DROP IN BOTH EYES FOUR TIMES DAILY UNTIL DIRECTED 02/10/2022 Active Active Problems No known active problems Social History Tobacco Use Types Packs/Day Years Used Date Smoking Tobacco: Never Smokeless Tobacco: Never Sex and Gender Information Value Date Recorded Sex Assigned at Not on file Gender Identity Not on file Sexual Orientation Not on file Job Start Date Occupation Industry Not on file Not on file Not on file Obstetrics History Last Filed Vital Signs Vital Sign Reading Time Taken Comments Blood Pressure 104/68 04/16/2022 12:21 PM CDT Pulse 72 04/16/2022 12:21 PM CDT Temperature 37.3 ??C (99.2 ??F) 04/16/2022 12:21 PM C DT Respiratory Rate - - Oxygen Saturation 96% 04/16/2022 12:21 PM CDT Inhaled Oxygen Concentration - - Weight - - Height - - Body Mass Index - - Plan of Treatment Health Maintenance Due Date Last Done Comments MEDICARE AWV 1940 COVID-19 Vaccine (#1) 1945 PERTUSSIS (Standing Order) 1959 TETANUS (Standing Order) 1959 Shingrix (Zoster recombinant ) vaccine (Standing Order) (1 of 2) 1990 RSV Vaccination (60+ yrs) (Abrysvo/Arexvy) (1 - 1-dose 60+ series) 2000 DXA,FEMALES AGE 65 OR GREATER 2005 Pneumococcal Vaccine: 65+ yr s (Standing Order) (1 of 1 - PCV) 2005 Influenza Vaccine Seasonal (Standing Order) (#1) 2024 HPV Vaccine (Standing Order) Aged Out No longer eligible based on patient's age to complete this topic Hepatitis B Vaccine (Standin g Order) Aged Out No longer eligible b ased on patient's age to complete this topic
--- OUTSIDE RECORDS SUMMARY | 2024-07-21 10:44 | XMS_ITS | Clinical Summary ---
Author Organization [facility] Address [place], [place] [address] Care Team Providers Care Adult Secondary Education Instructor Name Role Phone Pcp, No Primary Care Provider Unavailabl e Allergies Active Allergy Reactions Criticality Noted Date Comments Penicillins Rash 08/30/2013 Medications No known medications Social History Tobacco Use Types Packs/Day Years Used Date Smoking Tobacco: Never Alcohol Use Standard Drinks/Week Comments Not Asked 0 (1 standard drink = 0.6 oz pur e alcohol) Sex and Gender Information Value Date Recorded Sex Assigned at Not on file Gender Identity Not on file Sexual Orientation Not on file Obstetrics History Last Filed Vital Signs Vital Sign Reading Time Taken Comments Blood Pressure 105/63 03/31/2017 9:21 AM CDT Pulse 67 03/31/2017 9:21 AM CDT Temperature - - Respiratory Rate - - Oxygen Saturation 96% 03/31/2017 9:21 AM CDT Inhaled Oxygen Concentration - - Weight 66.9 kg (147 lb 6.4 oz) 03/31/2017 9:21 A M CDT Height - - Body Mass Index - - Plan of Treatment Health Maintenance Due Date Last Done Comments Tdap 1951 Depression screening for age 12+ 1952 BMI (ht and wt on same day) for age 18+ 1958 Tetanus booster 1960 Zoster (shingles) series for age 50+ (1 of 2) 05/08/19 90 DEXA/DXA scan for age 65+ 2005 Pneumococcal series for age 65+ (1 of 1 - PCV) 005 RSV vaccine for adults or pr egnancy (1 - 1-dose 75+ series) 2015 COVID-19 vaccine series (2023- season) 4 Influenza for age 65+ 06/25/2024 Care Teams Adult Secondary Education Instructor Relationship Specialty Start Date End Date Pcp, No . PCP - General 01/08/12
--- NOTE | 2024-07-21 10:45 | CRLHL7_ITS ---
For Patients: As a result of the Century Cures Act, medical imaging exams and procedure reports are released immediately into your electronic medical record. You may view this report before your referring provider. If you have questions, please contact your health care provider. BILATERAL SCREENING MAMMOGRAM WITH COMPUTER-AIDED DETECTION AND TOMOSYNTHESIS TECHNIQUE: CC and MLO views were obtained. These mammographic images have been obtained using full-field digital technique. These mammographic images were interpreted with the benefit of computer-aided detection. Breast Tomosynthesis was used in this interpretation. COMPARISON FILM: 06/23/23, 06/19/22, 06/18/21. FINDINGS: The breasts are heterogeneously dense, which may obscure small masses. IMPRESSION: There is no radiographic evidence for malignancy. ASSESSMENT: BI-RADS Category 2: Benign RECOMMENDATION: Routine screening mammogram in 1 year. A lay language report of this examination will be provided to the patient. Jewel Mcnair M.D. Diagnostic Radiologist [email or web address] SP/Dictated by: Jewel Mcnair MD @ 07/24/2024 11:31:00 AM (Electronically Signed)
== END 2024-07-21 10:42 | disposition home or self-care (01) ==
LOC: MAMMO 10:42
PROVIDERS: PCP Family Medicine; Visit Provider Family Medicine
DX: Z12.31 Encounter for screening mammogram for malignant neoplasm of breast (principal); R92.333 Mammographic heterogeneous density, bilateral breasts
CPT/HCPCS: 77063; 77067

== ENCOUNTER 2024-11-07 08:34 | Outpatient (CLI) | payer MEDICARE, SELFPAY | END 2024-11-07 08:35 | disposition home or self-care (01) | PROVIDERS: PCP Family Medicine; Visit Provider Family Medicine | DX: R10.13 Epigastric pain (principal) | CPT/HCPCS: 80053; 83690; 86140 ==

== ENCOUNTER 2024-11-23 09:30 | Outpatient (RCR) | payer MEDICARE, SELFPAY ==
--- NOTE | 2024-11-17 09:04 | OT.OPGNE2 ---
OT Outpatient General/Neuro Eval OT Outpatient General/Neuro Eval* Start: 11/10/24 13:40 Freq: Status: Active Protocol: Document 11/10/24 13:41 JLS (Rec: 11/10/24 13:45 JLS [id number]) E-signed By Akila Styles, OTR/L, CLT OT Outpatient Evaluation Details Type Type Eval Complexity Low Insurance Information Insurance Information Other Insurance a[employer]na Outpatient History/Precautions Current Condition Referring Provider [facility] Medical Diagnoses R25.1 tremor of right hand Treatment Diagnoses Z74.1 need for assist with personal cares. Date of Onset unknown Medical/Functional History Medical History Reviewed Yes Prior Level of Function/Mobility Pt has dementia dx and over past two years has developed an increasing R handed tremor. Pt has been I with all her ADLs/IADLs, doesn't drive, no AD. Prior Medical History Prior Medical History Tremor of right hand (Acute) R25.1 - Tremor, unspecified ( ICD-10) Hearing loss, bilateral (Acute ) H91.93 - Unspecified hearing loss, bilateral (ICD-10) Bilateral impacted cerumen ( Acute) H61.23 - Impacted cerumen, bilateral (ICD-10) Dementia (Acute) F03.90 - Unspecified dementia, unspecified severity, without behavioral disturbance, psychotic disturbance, mood disturbance, and anxiety (ICD- 10) Tension headache (Acute) G44.209 - Tension-type headache, unspecified, not intractable (ICD-10) Osteoarthritis of right thumb (Acute) Joint space narrowing and spurring at the triscaphe joint and 1st carpometacarpal joint along with several intercarpal joints. M18.11 - Unilateral primary osteoarthritis of first carpometacarpal joint, right hand (ICD-10) Urinary Incontinence (Acute) R32 - Unspecified urinary incontinence (ICD-10) Hair loss (Acute) L65.9 - Nonscarring hair loss, unspecified (ICD-10) Osteoarthritis of right knee ( Chronic) moderate M17.11 - Unilateral primary osteoarthritis, right knee ( ICD-10) Osteoarthritis of left knee ( Chronic) moderate M17.12 - Unilateral primary osteoarthritis, left knee (ICD -10) Closed fracture of 5th metacarpal (Acute 11/04/22) Mildly displaced obliquely oriented fracture of the 5th metacarpal diaphysis (DOI: 08/2023) S62.308A - Unspecified fracture of other metacarpal bone, initial encounter for closed fracture (ICD-10) Cervical paraspinous muscle spasm (Acute) M62.838 - Other muscle spasm ( ICD-10) Frequent headaches (Acute) R51.9 - Headache, unspecified (ICD-10) Wears hearing aid (Acute) Z97.4 - Presence of external hearing-aid (ICD-10) Varicose veins of lower extremity (Acute) I83.90 - Asymptomatic varicose veins of unspecified lower extremity (ICD-10) Syncope (Acute) R55 - Syncope and collapse ( ICD-10) Osteoporosis (Acute) M81.0 - Age-related osteoporosis without current pathological fracture (ICD-10) Osteoarthritis (Acute) M19.90 - Unspecified osteoarthritis, unspecified site (ICD-10) Multiple nevi (Acute) D22.9 - Melanocytic nevi, unspecified (ICD-10) Migraine headache (Acute 04/20) G43.909 - Migraine, unspecified, not intractable, without status migrainosus ( ICD-10) Menopausal syndrome (Acute) N95.1 - Menopausal and female climacteric states (ICD-10) Memory impairment (Acute) R41.3 - Other amnesia (ICD-10) Malignant neoplasm of breast ( Acute 04/2018) C50.919 - Malignant neoplasm of unspecified site of unspecified female breast (ICD -10) Lumbar radiculopathy (Acute) M54.16 - Radiculopathy, lumbar region (ICD-10) Low back pain (Acute) M54.50 - Low back pain, unspecified (ICD-10) Hearing problem (Acute) H91.90 - Unspecified hearing loss, unspecified ear (ICD-10) Glaucoma (Acute 2018) H40.9 - Unspecified glaucoma ( ICD-10) Excessive cerumen in ear canal (Acute) H61.20 - Impacted cerumen, unspecified ear (ICD-10) Ear problem (Acute) H93.90 - Unspecified disorder of ear, unspecified ear (ICD- 10) Breast lump on right side at 12 o'clock position (Acute) N63.15 - Unspecified lump in the right breast, overlapping quadrants (ICD-10) Bleeding from breast (Acute) N64.59 - Other signs and symptoms in breast (ICD-10) Medical History (Reviewed @ 19:03 by Robinson Jimenez MD) Fracture of metatarsal bone S92.309A - Fracture of unspecified metatarsal bone(s) , unspecified foot, initial encounter for closed fracture (ICD-10) Fracture of fourth metacarpal bone of right hand (11/04/22) S62.304A - Unspecified fracture of fourth metacarpal bone, right hand, initial encounter for closed fracture (ICD-10) Urinary Incontinence R32 - Unspecified urinary incontinence (ICD-10) Hair loss L65.9 - Nonscarring hair loss, unspecified (ICD-10) 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) COVID U07.1 - COVID-19 (ICD-10) History of vaginal delivery Surgical History (Reviewed @ 19:03 by Robinson Jimenez MD) H/O breast biopsy Z98.890 - Other specified postprocedural states (ICD-10) Status post breast biopsy (2017) Z98.890 - Other specified postprocedural states (ICD-10) History of tonsillectomy Z90.89 - Acquired absence of other organs (ICD-10) History of dilation and curettage Z98.890 - Other specified postprocedural states (ICD-10) History of appendectomy (04/20) Z90.49 - Acquired absence of other specified parts of digestive tract (ICD-10) Social History Lives With: Spouse Employment Status Retired Hobbies repairing furniture. Patient Subjective Subjective Patient Subjective Pt and spouse state that tremors are embarrassing when she tries to eat in public, they are more pronounced when she is tired, and less so when she is concentrating. Pt is exhibiting resting and essential tremors, mostly in R hand, but also in neck and L hand. Pain Assessment Pain Pain No Objective Measures Shoulder Shoulder B UE ROM WFL Hand Pinch/Investigative Analyst Strength Hand Pinch/Investigative Analyst Strength Hand Pinch/Investigative Analyst Strength Left Hand,Right Hand Left Hand Investigative Analyst Strength Position 1 in Elbow 16 Flexion (lbs) Lateral Pinch Strength (lbs) 12 Three Point Pinch (lbs) 11 Right Hand Investigative Analyst Strength Position 1 in Elbow 18 Flexion (lbs) Lateral Pinch Strength (lbs) 15 Three Point Pinch (lbs) 11 Comments Comments coordination functional but below norm Assessment Assessment Assessment Pt is a 84 yr old female who presents with issues relating to a R hand tremor. Pt has been limited by weakness and both essential and resting tremors mostly in her R UE, which has been limiting her participation in eating, especially in a social setting , fine motor tasks required for self care and home maintenance. Pt would benefit from OT for skilled intervention addressing these deficits. Occupational Therapy Treatment Plan - OP Potential Rehabilitation Potential Good Set Goals Goals Set with Patient Yes Goals Goals 1. Pt and CG will identify 3 home modifications, AE/DME for ADLs/IADLs. 2. Pt and CG will participate in HEP to increase strength and coordination for ADLs/ IADLs. Treatment Plan Treatment Plan Evaluation,Therapeutic Exercise,Therapeutic Activities,Self-Care/Home Management,Caregiver Training, Education,Functional/Cognitive Skills Expected Frequency 1x Week Expected Duration 4-6 Weeks Certification Certification Statement I Certify That: Therapy Services Provided, Therapy Plan Established, Therapy Plan Reviewed Certification Information Clinic ID # [id number] Initial Certification Date 11/10/24 Recertification Due Date 02/08/25 Provider Signature Required Yes Provider Signature Shows Agreement With POC & Medical Necessity Physician NPI Number Write NPI# Here Physician Comment/Change Comment or Changes Physician Signature & Date Requested Please Sign/Date Here
== END 2024-12-28 10:41 | disposition home or self-care (01) ==
PROVIDERS: PCP Family Medicine; Visit Provider Family Medicine
DX: R25.1 Tremor, unspecified (principal); Z74.1 Need for assistance with personal care; Z51.89 Encounter for other specified aftercare
CPT/HCPCS: 97110; 97165; 97530; 97535; X5282

== ENCOUNTER 2025-05-05 11:37 | Emergency (ER) | payer MEDICARE, SELFPAY ==
[2025-05-05] VITALS (27 sets, daily range): BP systolic 96–108; BP diastolic 56–64; PULSE 52–68; RESP 6–23; TEMP 36.7; O2SAT 97–100; BMI 18.4
--- OUTSIDE RECORDS SUMMARY | 2025-05-05 11:39 | XMS_ITS | Clinical Summary ---
Author Organization [facility] Address [address] [place] [id number] Care Team Providers Care Drive Thru Order Taker Name Role Phone Pcp, No Primary Care Provider Unavailabl e Allergies Active Allergy Reactions Criticality Noted Date Comments Penicillins Rash 08/30/2013 Medications No known medications Social History Tobacco Use Types Packs/Day Years Used Date Smoking Tobacco: Never Alcohol Use Standard Drinks/Week Comments Not Asked 0 (1 standard drink = 0.6 oz pur e alcohol) Comments Unknown Sex and Gender Information Value Date Recorded Sex Assigned at Not on file Legal Sex Female 8:25 AM [employer] Gender Identity Not on file Sexual Orientation [...] Health Maintenance Due Date Last Done Comments Tetanus booster 1951 Depression screening for age 12+ 1952 BMI (ht and wt on same day) for age 18+ 1958 Pneumococcal series for age 50+ (1 of 1 - PCV) 1990 Zoster (shingles) series for age 50+ (1 of 2) 1990 DEXA/DXA scan for age 65+ 2005 RSV vaccine for adults or (1 - 1-dose 75+ series) 2015 COVID-19 vaccine series (2023- season) 2024 Influenza Vaccine (#1) 2025 Hepatitis B series for 19+ Aged Out N o longer eligible based on patient's age to complete this topic Insurance [employer] MR Care Teams Drive Thru Order Taker Relationship Specialty Start Date End Date Pcp, No . PCP - General 01/08/12
--- NOTE | 2025-05-05 11:54 | ED_ITS ---
HPI - General Adult General Time Seen by Provider: 11:54 Date Seen: 05/05/25 Chief complaint: Altered Mental Status Stated complaint: Had 2 seizures this morning Time Seen by Provider: 05/05/25 11:51 Source: patient, family and RN notes reviewed Mode of arrival: ambulatory Limitations: no limitations History of Present Illness HPI narrative: This 84-year-old female is seen in triage on arrival, accompanied by her . They were sitting at the breakfast table and he noticed her arms started to tremble, she was not lucid, looked craig and ashen and started to slide out of the chair, he did catch her. She had another brief event after that, he then got her back into bed. She does have underlying dementia. She denies any new onset of headaches but it does seem that her would question her reliability due to her dementia. She has never had seizures before. There is no trauma. She has had a history of breast cancer in review of her chart. Her describes this as a vibration. He states she was just sitting at the table, started to vibrate in her arms and stiffen up, she started to slide out of the chair and he got her down to the ground. She seemed to come to, the stated that she could hear him. Then she had another brief spell of this vibration followed by stiffening. She does remember getting up this morning, got dressed, met a friend outside and talk to that friend for a bit, her states she is correct in this memory. She does not really remember any the details of the event. He does note that during these stiff needing spells that she did turn craig. Related Data Home Medications ?Medication ?Instructions ?Recorded ?Confirmed ascorbic acid (vitamin C) 500 mg 500 mg PO DAILY 06/1005/02/25 tablet cholecalciferol (vitamin D3) 25 25 mcg PO QDAY 2 05/02/25 mcg (1,000 unit) capsule omega 5-rqb-oqz-fish oil 300 1 cap PO QDAY 06/10/22 mg-1,000 mg capsule (Fish Oil) polyethylene glycol 3350 17 4 g PO ONCE PRN 07/07/23 0 05/02/25 gram/dose oral powder (Miralax) aspirin 81 mg tablet 81 mg PO .prn 05/02/2505/02 calcium carbonate (Calcium 500) 600 mg PO QDAY 2 5 05/02/25 minoxidil 2.5 mg tablet 2.5 mg PO QDAY 05/02/2507/19 Previous Rx's ?Medication ?Instructions ?Recorded minoxidil 5 % topical foam 1 ea topical .QD #60 grams 03/22/24 (Rogaine) donepezil 10 mg tablet 10 mg PO QDAY #90 tabs 05/02 omeprazole 40 mg capsule,delayed 40 mg PO QDAY #90 cap s 05/02/25 release levetiracetam 500 mg tablet 500 mg PO BID #60 tabs 10/18 (Keppra) Allergies Allergy/AdvReac Type Severity Reaction Status Date / Time No Known Drug Allergies Allergy Verified 05/05/25 11:49 Review of Systems Status of ROS: Reports: 6 or more systems reviewed and unremarkable except as noted in History and below [facility] Medical History Fracture of metatarsal bone ?S92.309A - Fracture of unspecified metatarsal bone(s), unspecified foot, initial encounter for closed fracture (ICD-10) Fracture of fourth metacarpal bone of right hand (11/04/22) ?S62.304A - Unspecified fracture of fourth metacarpal bone, right hand, initial encounter for closed fracture (ICD-10) Urinary Incontinence ?R32 - Unspecified urinary incontinence (ICD-10) Hair loss ?L65.9 - Nonscarring hair loss, unspecified (ICD-10) 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) COVID ?U07.1 - COVID-19 (ICD-10) History of vaginal delivery Surgical History H/O breast biopsy ?Z98.890 - Other specified postprocedural states (ICD-10) Status post breast biopsy (04/2018) ?Z98.890 - Other specified postprocedural states (ICD-10) History of tonsillectomy ?Z90.89 - Acquired absence of other organs (ICD-10) History of dilation and curettage ?Z98.890 - Other specified postprocedural states (ICD-10) History of appendectomy (04/20/11) ?Z90.49 - Acquired absence of other specified parts of digestive tract (ICD- 10) Family History Mother Colon cancer Father Colon cancer Social History Narrative: -Bryan What is your current living situation?: I presently have a place to live Problems where you live: no known problems In the past 12 months, utilities in danger of being shut off: no In past 12 months, lack of transportation kept you from medical appts, meetings, work, or getting things needed for daily living: no In the past 12 mos, have been you worried that your food would run out before you had money to buy more?: never true In the past 12 mos, the food you bought just didn't last and you didn't have money to buy more?: never true Smoking Status: Never smoker How often does anyone, including family, friends and others, physically hurt you : never How often does anyone, including family, friends and others, insult or talk down to you: sometimes How often does anyone, including family, friends and others, threaten you with h arm: never How often does anyone, including family, friends and others, scream or curse at you: never Health Related Social Needs: Other personal risk factors, not elsewhere classified (Z91.89) Exam Const: Vital Signs, click to edit/add: Vital Signs - 24 hr 05/05/25 11:51 05/05/25 11:55 05/05/25 12:39 Temperature 98.1 F Pulse Rate 52 L Pulse Rate [Pulse Oximeter] 68 Respiratory Rate 18 13 Blood Pressure Blood Pressure [Ri ght Upper Arm] 100/60 Pulse Oximetry 99 99 98 Oxygen Delivery Me thod Room Air 05/05/25 12:41 05/05/25 12:45 05/05/25 13:00 Temperature Pulse Rate 54 L 60 58 L Pulse Rate [Pulse Oximeter] Respiratory Rate 13 14 16 Blood Pressure 96/59 L Blood Pressure [Ri ght Upper Arm] Pulse Oximetry 99 99 100 Oxygen Delivery Me thod Room Air 05/05/25 13:02 05/05/25 13:15 05/05/25 13:21 Temperature Pulse Rate 56 L 55 L 58 L Pulse Rate [Pulse Oximeter] Respiratory Rate 14 15 16 Blood Pressure 104/59 L 108/64 Blood Pressure [Ri ght Upper Arm] Pulse Oximetry 100 99 [facility] 05/05/25 13:30 05/05/25 13:41 05/05/25 13:45 Temperature Pulse Rate 56 L 53 L 52 L Pulse Rate [Pulse Oximeter] Respiratory Rate 14 14 14 Blood Pressure 97/58 L Blood Pressure [Ri ght Upper Arm] Pulse Oximetry 98 98 98 [facility] 05/05/25 14:00 05/05/25 14:02 05/05/25 14:15 Temperature Pulse Rate 57 L 63 59 L Pulse Rate [Pulse Oximeter] Respiratory Rate 17 23 22 Blood Pressure 101/62 Blood Pressure [Ri ght Upper Arm] Pulse Oximetry 100 100 100 Oxygen Delivery [facility] Room Air 05/05/25 14:22 05/05/25 14:30 05/05/25 14:42 Temperature Pulse Rate 57 L 58 L 58 L Pulse Rate [Pulse Oximeter] Respiratory Rate 8 L 15 13 Blood Pressure 100/56 L 98/56 L Blood Pressure [Ri ght Upper Arm] Pulse Oximetry 99 99 99 [facility] 05/05/25 14:45 05/05/25 15:00 05/05/25 15:01 Temperature Pulse Rate 57 L 61 60 Pulse Rate [Pulse Oximeter] Respiratory Rate 14 20 22 Blood Pressure 99/56 L Blood Pressure [Ri ght Upper Arm] Pulse Oximetry 98 99 98 [facility] 05/05/25 15:15 05/05/25 15:21 05/05/25 15:30 Temperature Pulse Rate 61 58 L 59 L Pulse Rate [Pulse Oximeter] Respiratory Rate 22 16 14 Blood Pressure Blood Pressure [Ri ght Upper Arm] Pulse Oximetry 98 100 [facility] 05/05/25 15:41 05/05/25 15:45 05/05/25 15:57 Temperature Pulse Rate 53 L 59 L Pulse Rate [Pulse Oximeter] Respiratory Rate 6 L 23 Blood Pressure 106/64 96/61 Blood Pressure [Ri ght Upper Arm] Pulse Oximetry 98 97 Oxygen Delivery Me thod Patient initially seen in triage and then later in her room. She is alert, interactive, no apparent distress. She is ambulatory into the ED of her own accord without gait aid. Pupils are equal round reactive, sclerae clear, extraocular muscles intact. Symmetrical facial function. Speech is normal. Neck is slender, no jugular venous distension, no cervical adenopathy or masses, no thyromegaly masses or nodules. Lungs are clear, good air entry, no wheezing or crackles, no tachypnea. CV regular, no murmur, normal S1-S2. Abdomen is soft, nontender, nondistended, no organomegaly. She has no lower extremity edema. Gross motor for strength and sensation is normal and symmetrical throughout. Note no tremors. No visual loss by gross confrontation. Documenting provider has reviewed patient's vital signs: yes Course Course ED Course: Did discuss with patient and her that she is going to get a head CT. Will also have her on cardiac monitoring, pulse oximetry. We will establish an IV in case we need to give her anything acutely for recurrent seizures. Will look at a full complement of labs. Will likely talk to Neurology once I have head CT and laboratory evaluation back. She is currently back to baseline per her . Reevaluation(s) Time of Reevaluation #1: 12:58 Reevaluation #1: Nursing staff reporting heart rate in the 50s at rest, patient is seemingly asymptomatic. Will update an EKG. Time of Reevaluation #2: 14:20 Reevaluation #2: Patient has had no return of symptoms, is feeling fine. No development of a headache, no visual changes, no respiratory or cardiac changes. She has been on cardiac monitoring and pulse oximetry. Did see a couple of PVCs on her monitor while I was in talking to them. They are where that we will be paging neurology to discuss her case further. Her son whom is here now is wondering if this could be a stroke. Discussed with him that it is not likely to be a stroke but do need to consider seizure activity. In the elderly, seizures can stem from ischemic disease but do not see any evidence of an acute ischemic event at this time. The understand that I will be talking to Neurology further and to get recommendations from them. Consultations Consultation #1: Did speak with Dr. Gonzalez from Neurology at [facility]. Agrees that these sound like complex partial seizures. He would load her with a 1000 mg IV Keppra, start 500 b.i.d. after that. With a dementia patient having a first-time seizure, he states this makes life time anti epilepsy medication necessary. Patient is back to her baseline, should be able to discharge to home, has had no further events to this point. Did go back and talk to patient and her family. Explain the situation. We did discuss the difference between stroke and seizure. They were worried that this could have been a stroke. Did discuss with them that there are certain severe strokes where patients can lose consciousness, patients who had significant strokes can be at risk of seizures from the area of damage brain. She has no evidence of having had any stroke however. Her dementia does put her at risk for seizures. The had seen Neurology briefly for her testing for her dementia. We will load with the Kejessira here, plan on discharge to home to her primary care provider. They can consult Neurology outpatient. Time: 15:07 Vital Signs Vital signs: Initial Vital Signs Temperature 98.1 F 05/05/25 11:51 Temperature Source Temporal Artery Scan 05/05/25 11:51 Pulse Rate 68 05/05/25 11:51 Respiratory Rate 18 05/05/25 11:51 Blood Pressure 100/60 05/05/25 11:51 Blood Pressure Mean 73 05/05/25 11:51 Pulse Oximetry 99 05/05/25 11:51 Oxygen Delivery Method Room Air 05/05/25 11:51 Vital Signs Temperature 98.1 F 05/05/25 11:51 Pulse Rate 68 05/05/25 11:51 Respiratory Rate 18 05/05/25 11:51 Blood Pressure 100/60 05/05/25 11:51 Pulse Oximetry 99 05/05/25 11:51 Oxygen Delivery Method Room Air 05/05/25 11:51 Temperature 98.1 F 05/05/25 11:51 Pulse Rate 59 L 05/05/25 15:45 Respiratory Rate 23 05/05/25 15:45 Blood Pressure 96/61 05/05/25 15:57 Pulse Oximetry 97 05/05/25 15:45 Oxygen Delivery Method Room Air 05/05/25 14:22 Medications Administered Medications: Discontinued Medications Generic Name Dose Route Start Last Admin Trade Name Freq PRN Reason Stop Dose Admin Levetiracetam/Sodium Chloride 1,000 mg 05/05/25 15:16 05/05/25 15:38 Levetiracetam 1,000 Mg/100 Ml Infusion IVPB 05/05/25 15:17 1,000 mg ONCE ONE Administration Medical Decision Making Lab Data Lab results reviewed: Yes I reviewed the patient's lab results Labs: Lab Results 05/05/25 05/05/25 Range/Units 12:15 13:14 WBC 7.62 (4.50-11.00) K/uL RBC 4.44 (4.00-5.20) m/uL Hgb 13.4 (12.0-16.0) gm/dL Hct 41.8 (33.0-51.0) % MCV 94 (80-100) fL MCH 30 (26-34) pg MCHC 32 (32-36) gm/dL RDW Coeff of Trinity 13.1 (11.5-15.5) % Plt Count 187 (140-440) K/uL Neut % (Auto) 82.3 H (42.0-72.0) % Lymph % (Auto) 10.2 L (20-44) % [place] % (Auto) 5.6 (0.0-11.0) % Eos % (Auto) 0.9 (0.0-7.0) % Baso % (Auto) 0.7 (0.0-3.0) % Neut # (Auto) 6.30 (1.7-7.0) K/uL Lymph # (Auto) 0.80 L (0.90-2.90) K/uL [place] # (Auto) 0.40 (0.00-0.90) K/UL Eos # (Auto) 0.07 (0.00-0.50) K/uL Baso # (Auto) 0.05 (0.00-0.30) K/uL Abs Immat Gran (auto) 0.02 (0.00-0.30) K/uL Imm/Tot Granulo (auto) 0.3 % Sodium 141 (135-149) mmol/L Potassium 3.8 (3.6-5.1) mmol/L Chloride 107 (96-114) mmol/L Carbon Dioxide 28 (20-32) mmol/L Anion Gap 6 L (7-15) mEq/L BUN 20 (7-30) mg/dL Creatinine 0.9 (0.5-1.5) mg/dL Estimated Creat Clear 36.29 Estimated GFR 63 ml/min Glucose 105 (60-115) mg/dL Lactate 1.1 (0.5-1.9) mmol/L Calcium 9.6 (8.4-10.6) mg/dL Total Bilirubin 1.4 (0.1-1.5) mg/dL AST 35 (12-35) U/L ALT 19 (4-35) U/L Alkaline Phosphatase 50 (40-150) U/L Troponin I < 0.01 (0.01-0.04) ng/mL C-Reactive Protein < 0.5 L (0.5-1.0) mg/dL Total Protein 6.9 (6.0-8.3) g/dL Albumin 4.2 (3.3-5.0) g/dL Ethyl Alcohol < 0.01 (0.01-0.03) % Lab Acknowledgement Test Added Imaging Data CT scan - head: Attestation: I have reviewed the pertinent imaging results. My impression: I did visualize her head CT, I do not see any mass, nothing that is overtly concerning on my preliminary review, obviously will be awaiting Radiology over- read. Radiologist's impression: Patient: JUAN THOMAS Facility:?[facility] Patient ID:?[id number] Site Patient ID:?[id number]. Site :?[id number] Study:?CT-Head W/O-05/05/2025 12:08:19 PM Ordering Physician:Zayda Centeno Final Report: INDICATION: Two seizures this a.m., no prior history. TECHNIQUE: CT head without contrast. COMPARISON: MRI brain dated 12/04/2021. FINDINGS: Cerebral parenchyma: No evidence of acute territorial infarct. No acute intraparenchymal hemorrhage. No significant mass effect/midline shift. Normal craig-white matter differentiation. Extra-axial spaces: No extra-axial collection or hemorrhage. Ventricles: Unremarkable. Calvarium: Intact. Visualized paranasal sinuses/mastoid air cells: Grossly clear. Posterior fossa: No cerebellar tonsillar herniation. Visualized orbits: Thinning of the bilateral lens. No acute abnormality. IMPRESSION: No acute intracranial abnormality. Please note that all CT scans at this facility use dose modulation, iterative reconstruction, and/or weight-based dosing when appropriate to reduce radiation dose to as low as reasonably achievable. Dictated by Starr Durbin MD @ 05/05/2025 12:39:48 PM (Electronic Signature) ECG Data Attestation: I personally reviewed and interpreted this ECG as follows: (Sinus bradycardia, 55 beats per minute. Poor R-wave progression anterior precordial leads without any ST or T-wave changes indicating ischemia.) Prior ECG tracings: not available for review Discharge Plan Discharge Clinical Impression: Seizure Patient Disposition: Home w/ Parent or Adult Condition: Stable Instructions: Epilepsy in Older Adults (ED) Additional Instructions: You need to start Keppra 500 mg twice a day, this should be started tomorrow morning. You will need to follow-up with your primary care provider within the next week, can discuss referral to Neurology. Reviewed the handout, if there are any concerning changes, have seizures happening while on the Keppra, do need to seek re-evaluation. Have sent a month's worth of Keppra to the local pharmacy, long-term prescription can be sent by your primary care provider. Patient's with new onset seizure disorders should not operate heavy machinery, should not swim alone or be in a bathtub unattended. With your memory loss, you should not be driving anyway but you certainly cannot now with onset of seizure disorder. Activity Level: Activity as Tolerated Prescriptions: New levetiracetam [Keppra] 500 mg tablet 500 mg PO BID Qty: 60 2RF No Action ascorbic acid (vitamin C) 500 mg tablet 500 mg PO DAILY omega 4-oqa-yoe-fish oil [Fish Oil] 300-1,000 mg capsule 1 cap PO QDAY cholecalciferol (vitamin D3) 25 mcg (1,000 unit) capsule 25 mcg PO QDAY calcium carbonate [Calcium 500] 500 mg calcium (1,250 mg) tablet,chewable 600 mg PO QDAY polyethylene glycol 3350 [Miralax] 17 gram/dose powder 4 g PO ONCE PRN minoxidil 2.5 mg tablet 2.5 mg PO QDAY aspirin 81 mg tablet 81 mg PO .prn omeprazole 40 mg capsule,delayed release(DR/EC) 40 mg PO QDAY Qty: 90 3RF donepezil 10 mg tablet 10 mg PO QDAY Qty: 90 3RF minoxidil [Rogaine] 5 % foam 1 ea topical .QD Qty: 60 2RF Follow Up/Referrals: Jayant Jean Baptiste MD [Primary Care Provider, Family Practice] Stand Alone Forms: MyHealth Info Instructions
--- NOTE | 2025-05-05 11:55 | CRLHL7_ITS ---
For Patients: As a result of the Century Cures Act, medical imaging exams and procedure reports are released immediately into your electronic medical record. You may view this report before your referring provider. If you have questions, please contact your health care provider. INDICATION: Two seizures this a.m., no prior history. TECHNIQUE: CT head without contrast. COMPARISON: MRI brain dated 12/04/2021. FINDINGS: Cerebral parenchyma: No evidence of acute territorial infarct. No acute intraparenchymal hemorrhage. No significant mass effect/midline shift. Normal craig-white matter differentiation. Extra-axial spaces: No extra-axial collection or hemorrhage. Ventricles: Unremarkable. Calvarium: Intact. Visualized paranasal sinuses/mastoid air cells: Grossly clear. Posterior fossa: No cerebellar tonsillar herniation. Visualized orbits: Thinning of the bilateral lens. No acute abnormality. IMPRESSION: No acute intracranial abnormality. Please note that all CT scans at this facility use dose modulation, iterative reconstruction, and/or weight-based dosing when appropriate to reduce radiation dose to as low as reasonably achievable. Dictated by Starr Durbin MD @ 05/05/2025 12:39:48 PM (Electronically Signed)
[2025-05-05 12:22] LABS: Lactate* 1.1 mmol/L (0.5-1.9)
[2025-05-05 12:25] LABS: Hematocrit 41.8 % (33.0-51.0); Hemoglobin* 13.4 gm/dL (12.0-16.0); Immature Granulocytes Abs Auto 0.02 K/uL (0.00-0.30); Immature Granulocytes Pct Auto 0.3 %; Mean Corpuscular HGB Conc 32 gm/dL (32-36); Mean Corpuscular Hemoglobin 30 pg (26-34); Mean Corpuscular Volume 94 fL (80-100); RDW Coefficient of Variation % 13.1 % (11.5-15.5); Red Blood Count 4.44 m/uL (4.00-5.20); White Blood Count* 7.62 K/uL (4.50-11.00)
[2025-05-05 12:27] LABS: Lymphocytes Absolute Auto 0.80 K/uL (0.90-2.90); Slide Review Reflex No
[2025-05-05 12:39] LABS: Albumin* 4.2 g/dL (3.3-5.0); Chloride* 107 mmol/L (96-114); Potassium* 3.8 mmol/L (3.6-5.1); Sodium* 141 mmol/L (135-149)
[2025-05-05 12:41] LABS: Blood Urea Nitrogen* 20 mg/dL (7-30); Creatinine* 0.9 mg/dL (0.5-1.5); Est. Creatinine Clearance* 36.29; Estimated Glomerular Filt Rate 63 ml/min
[2025-05-05 12:42] LABS: Alanine Aminotransferase* 19 U/L (4-35); Alkaline Phosphatase* 50 U/L (40-150); Anion Gap 6 mEq/L (7-15); Aspartate Amino Transferase* 35 U/L (12-35); Bilirubin Total* 1.4 mg/dL (0.1-1.5); Calcium* 9.6 mg/dL (8.4-10.6); Carbon Dioxide* 28 mmol/L (20-32); Glucose* 105 mg/dL (60-115); Total Protein* 6.9 g/dL (6.0-8.3)
[2025-05-05 12:46] LABS: Ethanol* < 0.01 % (0.01-0.03)
[2025-05-05] MEDS: LEVETIRACETAM 1,000 mg/100 ml INFUSION 1000 MG IVPB (15:38)
== END 2025-05-05 16:12 | disposition home or self-care (01) ==
PROVIDERS: Emergency Provider Family Medicine; PCP Family Medicine
DX: R56.9 Unspecified convulsions (principal)
CPT/HCPCS: 36415; 70450; 80053; 82077; 83605; 84484; 85025; 86140; 93005; 94761; 96374; 99284; 99285; J1953

== ENCOUNTER 2025-08-28 09:59 | Outpatient (CLI) | payer MEDICARE, SELFPAY ==
--- NOTE | 2025-08-28 10:15 | CRLHL7_ITS ---
For Patients: As a result of the Century Cures Act, medical imaging exams and procedure reports are released immediately into your electronic medical record. You may view this report before your referring provider. If you have questions, please contact your health care provider. INDICATION: BILATERAL SCREENING MAMMOGRAM, ASYMPTOMATIC 85 Y/O FEMALE COMPARISON: 07/21/24, 07/01/23, 06/23/23 TECHNIQUE: Digital mammogram in CC and MLO projections including computer-aided detection (CAD) and tomosynthesis. BREAST COMPOSITION: The breasts are heterogeneously dense, which may obscure small masses. FINDINGS: No suspicious findings. ASSESSMENT: BI-RADS 1 Negative RECOMMENDATION: Annual screening mammogram. A lay language report of this examination will be provided to the patient. Dictated by: Jewel Mcnair MD @ 08/28/2025 11:12:53 (Electronically Signed)
== END 2025-08-28 10:00 | disposition home or self-care (01) ==
LOC: MAMMO 10:01
PROVIDERS: PCP Family Medicine; Visit Provider Family Medicine
DX: Z12.31 Encounter for screening mammogram for malignant neoplasm of breast (principal); R92.333 Mammographic heterogeneous density, bilateral breasts
CPT/HCPCS: 77063; 77067

== ENCOUNTER 2025-10-01 13:26 | Emergency (ER) | payer MEDICARE, SELFPAY ==
[2025-10-01] VITALS (14 sets, daily range): BP systolic 96–121; BP diastolic 65–81; PULSE 59–75; RESP 16; TEMP 37.1; O2SAT 96–100; BMI 19.0
--- OUTSIDE RECORDS SUMMARY | 2025-10-01 16:31 | XMS_ITS | Clinical Summary ---
Author Organization [facility] Address [address] , [address] [place] [address] Phone Care Team Providers Care Alumni Relations Officer Name Role Phone [facility] Unavailable Unava ilable Conditions or Problems Problem Name Problem Code Onset Date Status Entry Date Provider Comment Standard Description Annotate Tremor 15573204 (SNOMED CT) Active Herrera Macias MD Tremor Memory problems 55003705 (SNOMED CT) Active Herrera Macias MD Dementia Medications Medication Instructions Start Date Stop Date Generic Name ND Provider LATANOPROST 0.005 % SOLN 12/16 latanoprost 98280433905 Herrera Macias MD ALENDRONATE SODIUM 70 MG TABS 12/16 alendronate [id number] Herrera Macias MD ALENDRONATE SODIUM 70 MG TABS 12/16 alendronate [id number] Marybel Levy PA-C ANASTROZOLE 1 MG TABS take 1 tab daily anastrozole [id number] Marybel Levy PA-C ascorbic acid take 1 tab daily vitamin C Marybel Levy PA-C Calcium 500 + D 500 mg-5 mcg (200 unit) tablet take 2 tab by mouth daily calcium carbonate-vitamin d3 [id number] Marybel Levy PA-C cholecalciferol (vitamin D3) 25 mcg (1,000 unit) tablet take 2 tab by mouth daily cholecalciferol (vitamin d3) 04069029440 Marybel Levy PA-C FISH OIL 1000 MG CAPS take 1 cap daily omega 0-ukt-shk-fish oil 82647794461 Marybel Levy RHIANNON GLUCOSAMINE HCL 500 MG TABS take 1 tab daily glucosamine hcl 69442259356 Marybel Levy RHIANNON SM IBUPROFEN IB 200 MG TABS take 1 tab by mouth every 6 hours as needed ibuprofen 53230203102 Marybel Levy RHIANNON MULTI-VITAMINS TABS take 1 tab daily multivitamin 20557561251 Marybel Levy RHIANNON LATANOPROST 0.005 % SOLN 12/16 latanoprost 79024788028 Herrera Macias MD ALENDRONATE SODIUM 70 MG TABS 12/16 alendronate 89053195403 Herrera Macias MD Medications Administered No information available. 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 Plan of Care Type Date Detail Pending order Neuropsychology Evaluation Pending order Follow up EMERITA af ter testing Pending order Neuropsychology Evaluation Pending order Follow up EMERITA af ter testing Pending order TSH Pending order TSH Pending order Follow up EMERITA Pending order MRI-Brain W/WO Pending order Methylmalonic Ac id Serum (MMA) Pending order T4 Free Direct Pending order TSH Pending order Vitamin B12 Pending order We will contact you with test results Procedures Code Procedure Name Date Entry Date ORDERS Follow up EMERITA [id number] MRI-Brain W/WO ORDERS Methylmalonic Acid Serum (MMA) ORDERS T4 Free Direct ORDERS TSH ORDERS Vitamin B12 ORDERS We will contact you with test results 202 11/26/06 ORDERS Methylmalonic Acid Serum (MMA) ORDERS T4 Free Direct ORDERS TSH ORDERS Vitamin B12 ORDERS We will contact you with test results 202 11/26/06 [facility]-[id number] Documentation of current medicatio ns Vital Signs No information available. Immunizations No information available. Advance Directives No information available.
--- OUTSIDE RECORDS SUMMARY | 2025-10-01 16:31 | XMS_ITS | Clinical Summary ---
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 PCP - General 01/08/12
[2025-10-01 17:30] LABS: Hematocrit* 38.1 % (33.0-51.0); Hemoglobin* 12.5 gm/dL (12.0-16.0); Immature Granulocytes Abs Auto 0.00 K/uL (0.00-0.30); Immature Granulocytes Pct Auto 0.0 %; Mean Corpuscular HGB Conc 33 gm/dL (32-36); Mean Corpuscular Hemoglobin 31 pg (26-34); Mean Corpuscular Volume 95 fL (80-100); RDW Coefficient of Variation % 13.0 % (11.5-15.5); Red Blood Count* 4.03 m/uL (4.00-5.20); White Blood Count* 6.32 K/uL (4.50-11.00)
[2025-10-01 17:42] LABS: Lymphocytes Absolute Auto 1.20 K/uL (0.90-2.90); Slide Review Reflex No
[2025-10-01 17:47] LABS: INR 1.03 (0.91-1.10); Prothrombin Time 14.3 Seconds
[2025-10-01 17:52] LABS: Chloride* 102 mmol/L (96-114)
[2025-10-01 17:53] LABS: Albumin* 3.9 g/dL (3.3-5.0); Potassium* 4.0 mmol/L (3.6-5.1); Sodium* 139 mmol/L (135-149)
[2025-10-01 17:55] LABS: Alanine Aminotransferase* 15 U/L (4-35); Anion Gap 11 mEq/L (7-15); Aspartate Amino Transferase* 24 U/L (12-35); Blood Urea Nitrogen* 22 mg/dL (7-30); Carbon Dioxide* 26 mmol/L (20-32); Creatinine* 0.8 mg/dL (0.5-1.5); Est. Creatinine Clearance* 36.82; Estimated Glomerular Filt Rate 72 ml/min
[2025-10-01 17:56] LABS: Alkaline Phosphatase* 52 U/L (40-150); Bilirubin Direct* 0.2 mg/dL (0.0-0.5); Bilirubin Total* 1.1 mg/dL (0.1-1.5); Calcium* 9.0 mg/dL (8.4-10.6); Glucose* 88 mg/dL (60-115); Total Protein* 6.4 g/dL (6.0-8.3)
--- NOTE | 2025-10-01 18:06 | ED.ABDPAIN ---
HPI - Abdominal Pain General Date Seen: 10/01/25 Chief Complaint: Abdominal Pain Stated Complaint: Black stool/ stomach pain Time Seen by Provider: 10/01/25 15:59 Source: patient, family, RN notes reviewed and old records reviewed Mode of arrival: ambulatory Limitations: no limitations History of Present Illness HPI narrative: Patient is a 85-year-old pleasant lady who suffers from dementia presents here with her son and significant other for abdominal discomfort that comes and go for approximately 2 weeks she has also had dark black stools with this. She had this problem previously approximate 6-8 months ago, and resolved with just omeprazole. No history of fevers chills she has no dysuria frequency no diarrhea associated with this, there is no correlation with eating but she has a very vague historian, previous history of appendectomy, there has been some weight loss over a longer period but nothing acute. She has had no bright red bleeding it seems to be black, she was using Pepto-Bismol in the past she tells me she was using this in her food, but now is not been using this. Related Data Home Medications ?Medication ?Instructions ?Recorded ?Confirmed ascorbic acid (vitamin C) 500 mg 500 mg PO DAILY 06/10/22 09/03/25 tablet polyethylene glycol 3350 17 4 g PO ONCE PRN 07/07/23 09/03/25 gram/dose oral powder (Miralax) calcium carbonate (Calcium 500) 600 mg PO QDAY 05/02/25 09/03/25 minoxidil 2.5 mg tablet 2.5 mg PO QDAY 05/02/25 09/03/25 acetaminophen 500 mg capsule 500 mg PO Q6H PRN 09/03/25 09/03/25 Previous Rx's ?Medication ?Instructions ?Recorded minoxidil 5 % topical foam 1 ea topical .QD #60 grams 03/22/24 (Rogaine) donepezil 10 mg tablet 10 mg PO QDAY #90 tabs 05/02/25 omeprazole 40 mg capsule,delayed 40 mg PO QDAY #90 caps 05/02/25 release levetiracetam 500 mg tablet 500 mg PO BID #180 tabs 05/17/25 (Keppra) Allergies Allergy/AdvReac Type Severity Reaction Status Date / Time No Known Drug Allergies Allergy Verified 10/01/25 18:52 Review of Systems Status of ROS Reports: 10 or more systems reviewed and unremarkable except as noted in History and below [facility] Medical History Fracture of metatarsal bone ?S92.309A - Fracture of unspecified metatarsal bone(s), unspecified foot, initial encounter for closed fracture (ICD-10) Fracture of fourth metacarpal bone of right hand (11/04/22) ?S62.304A - Unspecified fracture of fourth metacarpal bone, right hand, initial encounter for closed fracture (ICD-10) Urinary Incontinence ?R32 - Unspecified urinary incontinence (ICD-10) Hair loss ?L65.9 - Nonscarring hair loss, unspecified (ICD-10) 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) COVID ?U07.1 - COVID-19 (ICD-10) History of vaginal delivery Surgical History H/O breast biopsy ?Z98.890 - Other specified postprocedural states (ICD-10) Status post breast biopsy (04/2018) ?Z98.890 - Other specified postprocedural states (ICD-10) History of tonsillectomy ?Z90.89 - Acquired absence of other organs (ICD-10) History of dilation and curettage ?Z98.890 - Other specified postprocedural states (ICD-10) History of appendectomy (04/20/11) ?Z90.49 - Acquired absence of other specified parts of digestive tract (ICD-10) Family History Mother Colon cancer Father Colon cancer Social History Narrative: -Bryan What is your current living situation?: I presently have a place to live Problems where you live: no known problems In the past 12 months, utilities in danger of being shut off: no In past 12 months, lack of transportation kept you from medical appts, meetings, work, or getting things needed for daily living: no In the past 12 mos, have been you worried that your food would run out before you had money to buy more?: never true In the past 12 mos, the food you bought just didn't last and you didn't have money to buy more?: never true Smoking Status: Never smoker How often does anyone, including family, friends and others, physically hurt you: never How often does anyone, including family, friends and others, insult or talk down to you: sometimes How often does anyone, including family, friends and others, threaten you with harm: never How often does anyone, including family, friends and others, scream or curse at you: never Health Related Social Needs: Other personal risk factors, not elsewhere classified (Z91.89) Exam Narrative: Exam Narrative: On examination in room 3 she is in no apparent distress she is pleasant alert, pupils equal round reactive to light there is no scleral icterus redness or TMs are normal oropharynx normal there is no adenopathy anterior posterior chains, neck is good range of motion chest is good air entry bilaterally no wheezing crackles noted heart sounds are normal her abdomen is soft the entirely no guarding no organomegaly bowel sounds are normal, no masses. No hernias are noted. She has a scar on her right lower quadrant from a previous appendectomy. No CVA tenderness moves all extremities independently well neurologically intact. Const: Vital Signs, click to edit/add: Vital Signs - 24 hr 10/01/25 13:42 10/01/25 17:27 10/01/25 17:30 Temperature 98.7 F Pulse Rate 68 68 Pulse Rate [Pulse Oximeter] 73 Respiratory Rate 16 16 Blood Pressure 121/81 Blood Pressure [Ri ght Upper Arm] 96/65 Pulse Oximetry 99 98 97 Oxygen Delivery Me thod Room Air 10/01/25 17:45 10/01/25 18:00 10/01/25 18:15 Temperature Pulse Rate 60 67 75 Pulse Rate [Pulse Oximeter] Respiratory Rate Blood Pressure Blood Pressure [Ri ght Upper Arm] Pulse Oximetry 99 96 99 Oxygen Delivery Me thod 10/01/25 18:30 Temperature Pulse Rate 62 Pulse Rate [Pulse Oximeter] Respiratory Rate Blood Pressure Blood Pressure [Ri ght Upper Arm] Pulse Oximetry 100 Oxygen Delivery Me thod Course Course ED Course: Discussed patient with the patient her she has no evidence of current bleeding, there was some stuff in her stomach which may be some angiodysplasia buttock currently no bleeding when we did rectal exam. 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 They can then decide if the pull-through with surgery which I would recommend at this point. As it is going to just get larger I think also some omeprazole which she already takes to continue this would be a good idea, they can try some MiraLax to if she feel that she is constipated. Vital Signs Vital signs: Initial Vital Signs Temperature 98.7 F 10/01/25 13:42 Temperature Source Temporal Artery Scan 10/01/25 13:42 Pulse Rate 73 10/01/25 13:42 Respiratory Rate 16 10/01/25 13:42 Blood Pressure 96/65 10/01/25 13:42 Blood Pressure Mean 75 10/01/25 13:42 Blood Pressure Position Sitting 10/01/25 13:42 Pulse Oximetry 99 10/01/25 13:42 Oxygen Delivery Method Room Air 10/01/25 13:42 Vital Signs Temperature 98.7 F 10/01/25 13:42 Pulse Rate 73 10/01/25 13:42 Respiratory Rate 16 10/01/25 13:42 Blood Pressure 96/65 10/01/25 13:42 Pulse Oximetry 99 10/01/25 13:42 Oxygen Delivery Method Room Air 10/01/25 13:42 Temperature 98.7 F 10/01/25 13:42 Pulse Rate 62 10/01/25 18:30 Respiratory Rate 16 10/01/25 17:27 Blood Pressure 121/81 10/01/25 17:27 Pulse Oximetry 100 10/01/25 18:30 Oxygen Delivery Method Room Air 10/01/25 13:42 MDM - Abdominal Pain MDM Narrative Medical decision making narrative: During the evaluation of this patient I considered multiple differential diagnosis including life-threatening differentials which are appendicitis, aortic aneurysm, mesenteric ischemia, bowel perforation, ectopic , volvulus and bowel obstruction, other differential diagnosis include but are not limited to inflammatory bowel disease, cholecystitis, pancreatitis, hepatitis, gastritis, GERD, diverticulitis, peptic ulcer disease, pyelonephritis/UTI, renal colic/stone, pelvic inflammatory disease, cervicitis, endometritis, intrauterine , dysfunctional uterine bleeding, ovarian cyst/torsion, spontaneous as well as other etiologies Medical Records Attestation: I reviewed the patient's medical records. Lab Data Attestation: I reviewed the patient's lab results. Labs: Lab Results 10/01/25 10/01/25 Range/Units 17:16 18:26 WBC 6.32 (4.50-11.00) K/uL RBC 4.03 (4.00-5.20) m/uL Hgb 12.5 (12.0-16.0) gm/dL Hct 38.1 (33.0-51.0) % MCV 95 (80-100) fL MCH 31 (26-34) pg MCHC 33 (32-36) gm/dL RDW Coeff of Trinity 13.0 (11.5-15.5) % Plt Count 179 (140-440) K/uL Neut % (Auto) 69.9 (42.0-72.0) % Lymph % (Auto) 19.5 L (20-44) % Jack % (Auto) 8.9 (0.0-11.0) % Eos % (Auto) 0.9 (0.0-7.0) % Baso % (Auto) 0.8 (0.0-3.0) % Neut # (Auto) 4.42 (1.7-7.0) K/uL Lymph # (Auto) 1.20 (0.90-2.90) K/uL Jack # (Auto) 0.60 (0.00-0.90) K/UL Eos # (Auto) 0.06 (0.00-0.50) K/uL Baso # (Auto) 0.05 (0.00-0.30) K/uL Abs Immat Gran (auto) 0.00 (0.00-0.30) K/uL Imm/Tot Granulo (auto) 0.0 % INR 1.03 (0.91-1.10) APTT 26 (23-33) Seconds Sodium 139 (135-149) mmol/L Potassium 4.0 (3.6-5.1) mmol/L Chloride 102 (96-114) mmol/L Carbon Dioxide 26 (20-32) mmol/L Anion Gap 11 (7-15) mEq/L BUN 22 (7-30) mg/dL Creatinine 0.8 (0.5-1.5) mg/dL Estimated Creat Clear 36.82 Estimated GFR 72 ml/min Glucose 88 (60-115) mg/dL Calcium 9.0 (8.4-10.6) mg/dL Total Bilirubin 1.1 (0.1-1.5) mg/dL Direct Bilirubin 0.2 (0.0-0.5) mg/dL AST 24 (12-35) U/L ALT 15 (4-35) U/L Alkaline Phosphatase 52 (40-150) U/L Total Protein 6.4 (6.0-8.3) g/dL Albumin 3.9 (3.3-5.0) g/dL Stool Occult Blood Negative (Negative) Imaging Data CT scan - abdomen: Attestation: I have reviewed the pertinent imaging results. My impression: Large pelvic mass Radiologist's impression: [place] [address] Diagnostic Imaging Report Patient: Raimundo Krishnamurthy MR#: [id number] : 1940 Acct:[id number] Loc: ED Service Date: 10/01/[address]: Ordering Physician: Antonio Martinez M.D. Date of Service: 10/01/25 Procedure(s): CT abdomen pelvis w con Accession Number(s): [id number] cc: Jayant Jean Baptiste M.D.; Antonio Martinez M.D.~ For Patients: As a result of the Cures Act, medical imaging exams and procedure reports are released immediately into your electronic medical record. You may view this report before your referring provider. If you have questions, please contact your health care provider. Indication: Abdominal pain, history of black stools Technique: Volumetric multidetector CT images of the abdomen and pelvis were obtained after the administration of intravenous contrast. 62 cc Isovue 370 low osmolar intravenous contrast Comparison: None available. Findings: There is basilar atelectasis and parenchymal scarring with a small left-sided fat containing Bochdalek hernia. The liver is enlarged with mild hepatomegaly. No obvious focal abnormality. The portal vein is patent. The gallbladder is unremarkable without evidence of radiopaque calculus. There is no significant common biliary ductal dilatation or abrupt cut off. The spleen is normal in enhancement and size. There is demonstration of scattered submucosal enhancing vasculature seen throughout the gastric mucosa likely representing angiomatosis. Example of this finding can be seen best on series 2, image 32. The pancreas is normal in enhancement without significant atrophy. The adrenal glands are unremarkable. Cystic changes of the kidneys are appreciated with otherwise preserved corticomedullary differentiation. Moderate to severe stool is seen throughout the colon with somewhat decompressed appearance of the distal colon. No obvious pericolonic inflammatory change. The appendix is not visualized. There is no significant mesenteric, retroperitoneal, or pelvic sidewall lymph nodes. The aorta is nonaneurysmal with scattered atherosclerotic calcification. There is demonstration of a fat and soft tissue containing left adnexal mass measuring up to 8.4 x 13 point 0 centimeters in greatest dimension. There is no free fluid or free air. The anterior abdominal wall is intact without significant hernias. The lumbar vertebral body heights demonstrate chronic deformity of the T12 level with moderate to severe degenerative disc disease. There is anterolisthesis of L4 on L5 and moderate to severe facet arthrosis. Impression: 1. Demonstration of subtle submucosal vascular structures throughout the stomach likely representing small angiodysplasia/angiomatosis. Correlate with history of potential occult bleeding. 2. 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 3. Moderate stool seen throughout the colon without evidence of obvious focal pericolonic inflammatory change. Please note that all CT scans at this facility use dose modulation, iterative reconstruction, and/or weight-based dosing when appropriate to reduce radiation dose to as low as reasonably achievable. Dictated by Stan Frazier MD @ 10/01/2025 7:40:28 PM (Electronically Signed) Discharge Plan Discharge Clinical Impression: Abdominal pain, Seizure disorder, complex partial, Pelvic mass in female Dementia Qualifiers: Dementia type: unspecified type Dementia severity: unspecified severity Dementia behavioral or psychological symptom: unspecified whether behavioral, psychotic, or mood disturbance or anxiety Qualified Code(s): F03.90 - Unspecified dementia, unspecified severity, without behavioral disturbance, psychotic disturbance, mood disturbance, and anxiety Patient Disposition: Home w/ Parent or Adult Condition: Stable Instructions: Abdominal Pain (ED), Pelvic Pain (ED) Additional Instructions: I would suggest follow-up with your primary care doctor Jayant will have an idea where to send you for this. No evidence of any acute problems here, you did not have any bleeding in your hemoglobin is stable I would continue with the omeprazole which you are taking. I think a reasonable course is follow-up with primary care, they can refer you for a surgical evaluation if you want to go that route. As this is just going to continue to enlarge, and likely eventually do cause some problems Activity Level: Light activity Discharge Diet: Regular Prescriptions: No Action ascorbic acid (vitamin C) 500 mg tablet 500 mg PO DAILY calcium carbonate [Calcium 500] 500 mg calcium (1,250 mg) tablet,chewable 600 mg PO QDAY polyethylene glycol 3350 [Miralax] 17 gram/dose powder 4 g PO ONCE PRN acetaminophen 500 mg capsule 500 mg PO Q6H PRN levetiracetam [Keppra] 500 mg tablet 500 mg PO BID Qty: 180 3RF minoxidil 2.5 mg tablet 2.5 mg PO QDAY omeprazole 40 mg capsule,delayed release(DR/EC) 40 mg PO QDAY Qty: 90 3RF donepezil 10 mg tablet 10 mg PO QDAY Qty: 90 3RF minoxidil [Rogaine] 5 % foam 1 ea topical .QD Qty: 60 2RF Follow Up/Referrals: Jayant Jean Baptiste MD [Primary Care Provider, Family Practice] Stand Alone Forms: [employer] Info Instructions
[2025-10-01 18:34] LABS: Fecal Occult Blood* Negative (Negative)
--- NOTE | 2025-10-01 18:39 | CRLHL7_ITS ---
For Patients: As a result of the Century Cures Act, medical imaging exams and procedure reports are released immediately into your electronic medical record. You may view this report before your referring provider. If you have questions, please contact your health care provider. Indication: Abdominal pain, history of black stools Technique: Volumetric multidetector CT images of the abdomen and pelvis were obtained after the administration of intravenous contrast. 62 cc Isovue 370 low osmolar intravenous contrast Comparison: None available. Findings: There is basilar atelectasis and parenchymal scarring with a small left-sided fat containing Bochdalek hernia. The liver is enlarged with mild hepatomegaly. No obvious focal abnormality. The portal vein is patent. The gallbladder is unremarkable without evidence of radiopaque calculus. There is no significant common biliary ductal dilatation or abrupt cut off. The spleen is normal in enhancement and size. There is demonstration of scattered submucosal enhancing vasculature seen throughout the gastric mucosa likely representing angiomatosis. Example of this finding can be seen best on series 2, image 32. The pancreas is normal in enhancement without significant atrophy. The adrenal glands are unremarkable. Cystic changes of the kidneys are appreciated with otherwise preserved corticomedullary differentiation. Moderate to severe stool is seen throughout the colon with somewhat decompressed appearance of the distal colon. No obvious pericolonic inflammatory change. The appendix is not visualized. There is no significant mesenteric, retroperitoneal, or pelvic sidewall lymph nodes. The aorta is nonaneurysmal with scattered atherosclerotic calcification. There is demonstration of a fat and soft tissue containing left adnexal mass measuring up to 8.4 x 13 point 0 centimeters in greatest dimension. There is no free fluid or free air. The anterior abdominal wall is intact without significant hernias. The lumbar vertebral body heights demonstrate chronic deformity of the T12 level with moderate to severe degenerative disc disease. There is anterolisthesis of L4 on L5 and moderate to severe facet arthrosis. Impression: 1. Demonstration of subtle submucosal vascular structures throughout the stomach likely representing small angiodysplasia/angiomatosis. Correlate with history of potential occult bleeding. 2. 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 3. Moderate stool seen throughout the colon without evidence of obvious focal pericolonic inflammatory change. Please note that all CT scans at this facility use dose modulation, iterative reconstruction, and/or weight-based dosing when appropriate to reduce radiation dose to as low as reasonably achievable. Dictated by Stan Frazier MD @ 10/01/2025 7:40:28 PM (Electronically Signed)
== END 2025-10-01 20:26 | disposition home or self-care (01) ==
PROVIDERS: Emergency Provider Family Medicine; PCP Family Medicine
DX: G40.209 Localization-related (focal) (partial) symptomatic epilepsy and epileptic syndromes with complex partial seizures, not intractable, without status epilepticus (principal); F03.90 Unspecified dementia, unspecified severity, without behavioral disturbance, psychotic disturbance, mood disturbance, and anxiety; R19.07 Generalized intra-abdominal and pelvic swelling, mass and lump
CPT/HCPCS: 36415; 74177; 80048; 80076; 82270; 85025; 85610; 85730; 99284; 99285; Q9967